=== PATIENT | male | born 1935 | race Caucasian/White ===

== ENCOUNTER 2016-12-19 12:22 | Emergency (ER) | payer MEDICARE, BC ==
--- NOTE | 2016-12-19 12:40 | Emergency Department Record ---
History of Present Illness - General Chief complaint: Extremity Problem Stated complaint: SWOLLEN THUMB Time Seen by Provider: 12/19/16 12:40 Source: Patient Mode of Arrival: Ambulatory Limitations: No limitations - History of Present Illness Initial comments: The patient is here due to having pain and swelling to his L hand for 2 days. He denies any trauma but was cutting wood prior to the onset and thinks there may be a piece in there. He denies any direct trauma. MD Complaint: Extremity pain Onset/Timin -: Days(s) Location: Left, Hand Severity scale (1-10): 7 Quality: Aching, Sharp Consistency: Constant Improves with: Nothing Worsens with: Exertion, Palpation, Weight bearing Associated Symptoms: Denies other symptoms - Related Data Home Medications Medication Instructions Recorded Confirmed Last Taken Multivitamin [Multi-Vitamin Daily] 1 each PO DAILY 08/29/14 12/19/16 04/26/16 Gluc/Kevyn-MSM#1/C/Jason/Damian/Bor 1 tab PO DAILY 04/15/15 12/19/16 04/26/16 [Osteo Bi-Flex] Previous Rx's Medication Instructions Recorded Clindamycin HCl [Cleocin HCl] 300 mg PO QID #28 capsule 12/19/16 Allergies Allergy/AdvReac Type Severity Reaction Status Date / Time nitroglycerin Allergy Intermediate ALTERED Verified 04/26/16 15:07 [From Nitrostat] MENTAL STATUS Travel Screening - Travel/Exposure Within Last 30 Days Have you traveled within the last 30 days?: No Review of Systems Constitutional: Denies: Chills, Fever Eyes: Denies: Eye discharge ENT: Denies: Congestion Respiratory: Denies: Cough, Dyspnea Past Medical History - SOCIAL HISTORY Smoking Status: Never smoker Alcohol Use: None Drug Use: None - RESPIRATORY Hx Respiratory Disorders: Yes Hx Sleep Apnea: Yes Hx of CPAP: Yes - CARDIOVASCULAR Hx Cardio Disorders: Yes Hx Hypertension: Yes Hx Coronary Artery Disease: Yes (HYPERLIPIDEMIA) - NEURO Hx Neuro Disorders: No - GI Hx GI Disorders: Yes Hx of Polyps: Yes - Hx Genitourinary Disorders: Yes Hx Prostate Problems: Yes (cancer) Comment:: ERECTILE DYSFUNCTION - ENDOCRINE Hx Endocrine Disorders: No - MUSCULOSKELETAL Hx Musculoskeletal Disorders: Yes Hx Arthritis: Yes - PSYCH Hx Psych Problems: No - HEMATOLOGY/ONCOLOGY Hx Hematology/Oncology Disorders: Yes Hx Cancer: Yes Hx Chemotherapy: No Hx Radiation Therapy: No Family Medical History Any Significant Family History?: Yes Hx Heart Disease: Father Hx HTN: Father Physical Exam - General General Appearance: Alert, Oriented x3, Cooperative, No acute distress - Head Head exam: Atraumatic, Normocephalic, Normal inspection - Eye Eye exam: Normal appearance, PERRL - Extremities Extremities exam: Tenderness (There is tenderness, swelling and erythema to the L hand dorsally over the mid 1st MC bone. There is pain with L thumb flexion.), Other (There is a very small opening in the middle of the erythematous area that is draining a very small amount of purulent material.). negative: Normal inspection (There is erythema and slight swelling to the dorsal L hand over the 1st MT bone. There is red streaking up the L arm from the wound to just past the elbow.), Full ROM, Pedal edema Course Vital Signs 12/19/16 12:30 Temperature 98.2 F Pulse Rate 64 Respiratory 18 Rate Blood Pressure 146/77 Pulse Ox 93 L - Reevaluation(s) Reevaluation #1: The patient is doing better. I did explain to him the xrays appear normal with no FB. He states the hand feels better and is less red with less pain. I explained to him that since we are not sure if there is any FB in the hand we will treat him for an infection. If the infection does not clear we will need to refer him to a hand specialist. The patient does understand the plan. 12/19/16 13:41 Disposition Disposition: Discharge Clinical Impression: Infected hand Disposition: Home, Self-Care Condition: (1) Good Instructions: Cellulitis (ED) Additional Instructions: Take the Clindamycin as directed. Use warm compresses on the hand every 2 hours while awake for 20 minutes (or soaks). [facility]ck as planned for the 8:20 appointment. Prescriptions: Clindamycin HCl [Cleocin HCl] 300 mg PO QID #28 capsule Forms: Patient Portal Access Time of Disposition: 14:17
[2016-12-19] MEDS ORDERED: CLINDAMYCIN 600MG/50ML PREMIX 600 MG in DEXTROSE 1 BAG IV ONE (12:44)
[2016-12-19] MEDS ORDERED: CEFTRIAXONE SODIUM 1 GM in 0.9 % SODIUM CHLORIDE 100ML 100 ML IVPB ONE (13:54)
--- NOTE | 2016-12-21 13:39 | RADIOLOGY REPORT ---
EXAM: LEFT HAND HISTORY: PATIENT HAD A SPLINTER IN THE LEFT THUMB ON MONDAY. NOW COMPLAINING OF PAIN, REDNESS, SWELLING, AND WARMTH TO THE TOUCH AT THE FIRST METACARPAL REGION. TECHNIQUE: Three views of the left hand were obtained. Comparison: None. FINDINGS: There are diffuse arthritic changes throughout the hand and wrist. There are no acute osseous abnormalities. There is no radiopaque foreign body. There is soft tissue swelling of the thumb and surrounding the first metacarpal. There is no associated acute osseous abnormality. There is no visible soft tissue air. IMPRESSION: 1. SOFT TISSUE SWELLING SURROUNDING THE THUMB AND FIRST METACARPAL. 2. NO ACUTE OSSEOUS ABNORMALITY OR VISIBLE FOREIGN BODY. JOB [facility]BER: [id number] [facility]
== END 2016-12-19 14:44 | disposition home or self-care (01) ==
LOC: ER 12:22
DX: L08.9 Local infection of the skin and subcutaneous tissue, unspecified (principal)
CPT/HCPCS: 96365; 96366; 99283; 99284

== ENCOUNTER 2017-04-22 23:48 | Emergency (ER) | payer MEDICARE, BC ==
[2017-04-22] MEDS ORDERED: ONDANSETRON HCL IV 4 MG/2 ML VIAL IV ONE (23:59)
[2017-04-22] MEDS ORDERED: ACETAMINOPHEN 1,000 MG/100 ML BTL IVPB ONE (23:59)
[2017-04-22] MEDS ORDERED: 0.9 % SODIUM CHLORIDE 1000ML 1,000 ML IV ONE (23:59)
[2017-04-22] MEDS ORDERED: MORPHINE SULFATE 5 MG/ML PFS IVP ONE (23:59)
--- NOTE | 2017-04-23 00:08 | Emergency Department Record ---
History of Present Illness - General Chief Complaint: Abdominal Pain Stated Complaint: PAIN Time Seen by Provider: 04/22/17 23:53 Source: Patient, Family Mode of Arrival: Ambulatory Limitations: No limitations - History of Present Illness Initial Comments: 81 yo male presents with lower abdominal pain. He feels bloated and feels like he needs to have a bowel movement. No hematuria. He had a bowel movement yesterday that was normal. He mowed the yard today without pain on the riding mower and went to [facility] from 5p to 9p without pain. The pain started later once he got home. No vomiting. He reports he had a bladder biopsy on Monday. He did not have any significant immediate difficulties MD Complaint: Abdominal pain -: Hour(s) Location: Suprapubic, Other (Low abdomen) Migration to: No migration Severity: Severe Quality: Aching, Cramping, Sharp, Stabbing Consistency: Intermittent Improves With: Nothing Worsens With: Bowel movement (Unable to have a bowel movement) Associated Symptoms: Constipation (tonight) - Related Data Home Medications Medication Instructions Recorded Confirmed Last Taken Multivitamin [Multi-Vitamin Daily] 1 each PO DAILY 08/29/14 04/23/17 04/26/16 Glucosam/Kevyn-Msm1/C/Jason/Bosw 1 tab PO DAILY 04/15/15 04/23/17 04/26/16 [Osteo Bi-Flex] Previous Rx's Medication Instructions Recorded Polyethylene Glycol 3350 [Miralax] 1 packet PO DAILY #14 packet 04/23/17 Allergies Allergy/AdvReac Type Severity Reaction Status Date / Time nitroglycerin Allergy Intermediate ALTERED Verified 04/23/17 00:07 [From Nitrostat] MENTAL STATUS Review of Systems Constitutional: Denies: Chills, Fever, Malaise, Night sweats, Weakness Eyes: Denies: Eye discharge ENT: Denies: Congestion, Throat pain Respiratory: Denies: Cough, Dyspnea Cardiovascular: Denies: Chest pain, Syncope Endocrine: Denies: Fatigue Gastrointestinal: Reports: Abdominal pain, Constipation. Denies: Diarrhea, Hematemesis, Hematochezia, Melena, Nausea, Vomiting Genitourinary: Denies: Dysuria, Frequency, Hematuria Musculoskeletal: Denies: Arthralgia, Back pain, Myalgia, Neck pain Neurological: Denies: Confusion, Headache Psychiatric: Denies: Anxiety Hematological/Lymphatic: Denies: Blood Clots, Easy bleeding, Easy bruising, Swollen glands Past Medical History - SOCIAL HISTORY Smoking Status: Never smoker Drug Use: None - RESPIRATORY Hx Respiratory Disorders: Yes Hx Sleep Apnea: Yes Hx of CPAP: Yes - CARDIOVASCULAR Hx Cardio Disorders: Yes Hx Hypertension: Yes Hx Coronary Artery Disease: Yes (HYPERLIPIDEMIA) - NEURO Hx Neuro Disorders: No - GI Hx GI Disorders: Yes Hx of Polyps: Yes - Hx Genitourinary Disorders: Yes Hx Prostate Problems: Yes (cancer) Comment:: ERECTILE DYSFUNCTION - ENDOCRINE Hx Endocrine Disorders: No - MUSCULOSKELETAL Hx Musculoskeletal Disorders: Yes Hx Arthritis: Yes - PSYCH Hx Psych Problems: No - HEMATOLOGY/ONCOLOGY Hx Hematology/Oncology Disorders: Yes Hx Cancer: Yes Hx Chemotherapy: No Hx Radiation Therapy: No Family Medical History Hx Heart Disease: Father Hx HTN: Father Physical Exam - General General Appearance: Alert, Oriented x3, Cooperative, No acute distress Limitations: No limitations - Head Head exam: Normal inspection - Eye Eye exam: Normal appearance. negative: Conjunctival injection, Periorbital swelling - ENT ENT exam: Normal exam, Mucous membranes moist Ear exam: Normal external inspection Nasal Exam: Normal inspection Mouth exam: Normal external inspection - Neck Neck exam: Normal inspection, Full ROM. negative: Tenderness - Respiratory Respiratory exam: Normal lung sounds bilaterally. negative: Respiratory distress - Cardiovascular Cardiovascular Exam: Regular rate, Normal rhythm, Normal heart sounds - GI/Abdominal GI/Abdominal exam: Soft. negative: Distended, Hernia, Organomegaly, Rigid, Tenderness - Rectal Rectal exam: Fecal impaction, Heme (-) stool. negative: Bloody stool - exam: Normal inspection. negative: Scrotal swelling, Testicular tenderness - Extremities Extremities exam: Normal inspection, Full ROM, Normal capillary refill. negative: Tenderness - Back Back exam: Reports: Normal inspection, Full ROM. Denies: Muscle spasm, Rash noted, Tenderness - Neurological Neurological exam: Alert, Normal gait, Oriented X3 - Psychiatric Psychiatric exam: Normal affect, Normal mood - Skin Skin exam: Dry, Intact, Normal color, Warm Course - Reevaluation(s) Reevaluation #1: The CBC, Lipase, CMP were reviewed. No acute changes. 04/23/17 00:50 Reevaluation #2: The pain returned. Instead of low abdomen it is now more RUQ. No nausea, vomiting or back pain. He has drank one bottle of contrast. 04/23/17 01:20 Reevaluation #3: The patient returned from CT. He is resting very comfortably. No pain. 04/23/17 02:46 Reevaluation #4: The [facility] report was reviewed: Moderate fecal stasis fo the sigmid and rectal vault, sigmoid diverticulosis without diverticulitis, small fat containing inguinal hernia, cardiomegally The results were discussed with the patient and daughter. I recommended a MOM enema after performing a rectal examination. There was abundant craig like stool in the rectum. He did take [place] the first several days after surgery. 04/23/17 02:57 Reevaluation #5: The patient has a significantly large bowel movement and feels very comfortable much improved DC home with home care instructions and follow We discussed reasons to return as well. 04/23/17 03:54 Medical Decision Making - Lab Data Result diagrams: 04/23/17 00:08 04/23/17 00:08 Disposition Disposition: Discharge Clinical Impression: Abdominal pain, Constipation Disposition: Home, Self-Care Condition: (1) Good Instructions: Constipation (ED), Abdominal Pain (ED) Prescriptions: Polyethylene Glycol 3350 [Miralax] 1 packet PO DAILY #14 packet Forms: Patient Portal Access Time of Disposition: 03:55
[2017-04-23 00:33] LABS: ALBUMIN 4.5 gm/dL (3.5-5.0); ALKALINE PHOSPHATASE 85 U/L (38-126); ALT/SGPT 29 U/L (21-72); ANION GAP 8.2 (7-16); AST/SGOT 26 U/L (17-59); BASO % 0.5 % (0-6); BILIRUBIN,TOTAL 0.75 mg/dL (0.2-1.3); BLOOD UREA NITROGEN 23 mg/dL (9-20); CARBON DIOXIDE 26.8 mmol/L (22-30); CREATININE 1.2 mg/dL (0.66-1.25); EOS % 3.6 % (0-6); EST GLOMERULAR FILTRATION RATE > 60 ml/min; GLUCOSE,RANDOM 84 mg/dL (70-110); HEMOGLOBIN 16.1 gm/dl (14.0-18.0); LIPASE 76 U/L (23-300); LYMPH % 20.6 % (16-45); MEAN CELL VOLUME 91.7 fl (81-97); MEAN CORPUSCULAR HEMOGLOBIN 29.5 pg (27-33); MEAN CORPUSCULAR HGB CONC 32.2 g/dl (32-36); MEAN PLATELET VOLUME 9.9 fl (7.4-10.4); MONO % 13.3 % (0-9); PLATELET COUNT 215 K/uL (130-400); RED BLOOD COUNT 5.45 M/uL (4.40-5.70); RED CELL DISTRIBUTION WIDTH 14.1 % (11.5-14.5); TOTAL PROTEIN 8.2 gm/dL (6.3-8.2); WHITE BLOOD COUNT W/O DIFF 8.6 K/uL (4.2-12.2)
[2017-04-23] MEDS ORDERED: MORPHINE SULFATE 5 MG/ML PFS IVP ONE (01:04)
--- NOTE | 2017-04-25 04:14 | CT SCAN REPORT ---
DATE: 04/23/2017 at 2:25 a.m. EXAM: CT SCAN OF THE ABDOMEN AND PELVIS WITH CONTRAST. HISTORY: Blood in stool. Severe abdominal pain. Difficulty going to the bathroom. Bladder biopsy on Monday. TECHNIQUE: Standard CT imaging of the abdomen and pelvis was performed with oral and intravenous contrast. A total of 100 mL of Omnipaque 300 was administered. Additional coronal and sagittal reformatted images were also performed. COMPARISON: February 24, 2016. FINDINGS: There is moderate atelectasis or scarring at the lung bases. The heart is enlarged. Coronary artery calcifications are present. The stomach and epigastrium appear normal. The liver parenchyma appears normal. The gallbladder is surgically absent. There is no biliary ductal dilatation. The pancreas appears normal. Small duodenal diverticula are present adjacent to the pancreatic head. The spleen and adrenal glands are normal. The kidneys and ureters are unremarkable. There are moderate atherosclerotic calcifications within the aorta. There is no lymphadenopathy. There are scattered diverticula within the descending and sigmoid colon regions with no evidence for acute diverticulitis. There is moderate stool within the colon and greatest within the rectosigmoid region. There is minor wall thickening of the rectum suggesting possible fecal impaction. The small bowel loops and appendix are normal. There is no pneumoperitoneum or ascites. The urinary bladder appears normal. The previously noted small mass along the posterior wall is not seen on the current examination. The previously noted umbilical hernia has been repaired. Degenerative changes are present within the spine. No osteoblastic or osteolytic process is identified. IMPRESSION: 1. MODERATE STOOL/FECAL STASIS AT THE LEVEL OF THE RECTOSIGMOID COLON SUGGESTING FECAL IMPACTION. 2. COLONIC DIVERTICULOSIS WITH NO EVIDENCE FOR ACUTE DIVERTICULITIS. 3. ADDITIONAL STABLE CHRONIC FINDINGS ABOVE. JOB NUMBER: [id number] [facility]
== END 2017-04-23 04:05 | disposition home or self-care (01) ==
LOC: ER 23:48
DX: K59.00 Constipation, unspecified (principal); R10.11 Right upper quadrant pain
CPT/HCPCS: 99284 ×2; 96376; 96365; 96375; 83690; 85025; 80076; 80048; 74177; Q9967; J2405; J2270; J7030

== ENCOUNTER 2017-11-22 09:47 | Inpatient (IN) | payer MEDICARE, BC ==
[2017-11-22] MEDS ORDERED: IPRATROPIUM/ALBUTEROL (0.5MG/3MG) NEB INH ONE ×2 (09:56→13:36)
[2017-11-22] MEDS ORDERED: METHYLPREDNISOLONE PF 125MG/VIAL IVP ONE (10:01)
[2017-11-22] MEDS ORDERED: ASPIRIN 81 MG CHEWABLE TABLET PO ONE (10:12)
[2017-11-22 10:49] LABS: BASO % 0.2 % (0-6); EOS % 2.7 % (0-6); GRAN % 73.6 % (47-80); HEMATOCRIT 47.4 % (42.0-52.0); HEMOGLOBIN 15.4 gm/dl (14.0-18.0); LYMPH % 11.9 % (16-45); MEAN CELL VOLUME 94.4 fl (81-97); MEAN CORPUSCULAR HEMOGLOBIN 30.7 pg (27-33); MEAN CORPUSCULAR HGB CONC 32.5 g/dl (32-36); MONO % 11.6 % (0-9); PLATELET COUNT 205 K/uL (130-400); RED BLOOD COUNT 5.02 M/uL (4.40-5.70); RED CELL DISTRIBUTION WIDTH 14.3 % (11.5-14.5); WHITE BLOOD COUNT W/O DIFF 10.4 K/uL (4.2-12.2)
[2017-11-22] MEDS ORDERED: ALBUTEROL SULFATE (0.083%) 2.5 MG/3 ML NEB INH ONE (10:56)
[2017-11-22 10:59] LABS: BLOOD UREA NITROGEN 16 mg/dL (8-23); CREATININE 1.1 mg/dL (0.7-1.2); EST GLOMERULAR FILTRATION RATE > 60 mL/min
[2017-11-22 11:02] LABS: GLUCOSE,RANDOM 114 mg/dL (74-109)
[2017-11-22 11:03] LABS: INR 0.94; PARTIAL THROMBOPLASTIN TIME 28.2 SECONDS (24.5-39.1); PROTHROMBIN TIME (PATIENT) 10.2 SECONDS (9.5-12.1)
[2017-11-22 11:07] LABS: CKMB 2.8 ng/mL (<6.73)
--- NOTE | 2017-11-22 11:32 | Emergency Department Record ---
History of Present Illness - General Chief Complaint: Shortness of breath Stated Complaint: VIKTORIA Time Seen by Provider: 11/22/17 10:11 Mode of Arrival: Ambulatory - History of Present Illness Initial Comments: 2 days ago and cough and congestion and wheezing and no history of CHF. PMH hypertension and hyperchol Onset/Timin -: Days(s) Improves With: Rest Worsens With: Movement Associated Symptoms: Cough Treatments Prior to Arrival: None - Related Data Home Oxygen Therapy: No Allergies Allergy/AdvReac Type Severity Reaction Status Date / Time nitroglycerin Allergy Intermediate ALTERED Verified 11/22/17 09:56 [From Nitrostat] MENTAL STATUS Travel Screening - Travel/Exposure Within Last 30 Days Have you traveled within the last 30 days?: No Review of Systems Reviewed: No additional complaints except as noted below Constitutional: Reports: As per HPI. Denies: Chills, Fever, Malaise, Night sweats, Weakness, Weight change Eyes: Reports: As per HPI. Denies: Eye discharge, Eye pain, Photophobia, Vision change ENT: Reports: As per HPI, Congestion. Denies: Dental pain, Ear pain, Epistaxis , Hearing loss, Throat pain Respiratory: Reports: As per HPI, Cough, Wheezes. Denies: Dyspnea, Hemoptysis, Stridor Cardiovascular: Reports: As per HPI. Denies: Arrhythmia, Chest pain, Dyspnea on exertion, Edema, Murmurs, Orthopnea, Palpitations, Paroxysmal nocturnal dyspnea, Rheumatic Fever, Syncope Endocrine: Reports: As per HPI. Denies: Fatigue, Heat or cold intolerance, Polydipsia, Polyuria Gastrointestinal: Reports: As per HPI. Denies: Abdominal pain, Constipation, Diarrhea, Hematemesis, Hematochezia, Melena, Nausea, Vomiting Genitourinary: Reports: As per HPI. Denies: Dysuria, Frequency, Hematuria, Incontinence, Retention, Testicular pain, Testicular mass, Urgency Musculoskeletal: Reports: As per HPI. Denies: Arthralgia, Back pain, Gout, Joint swelling, Myalgia, Neck pain Skin: Reports: As per HPI. Denies: Bruising, Change in color, Change in hair/ nails, Lesions, Pruritus, Rash Neurological: Reports: As per HPI. Denies: Abnormal gait, Confusion, Headache, Numbness, Paresthesias, Seizure, Tingling, Tremors, Vertigo, Weakness Psychiatric: Reports: As per HPI. Denies: Anxiety, Auditory hallucinations, Depression, Homicidal thoughts, Suicidal thoughts, Visual hallucinations Hematological/Lymphatic: Reports: As per HPI. Denies: Anemia, Blood Clots, Easy bleeding, Easy bruising, Swollen glands Past Medical History - SOCIAL HISTORY Smoking Status: Never smoker Alcohol Use: None Drug Use: None - RESPIRATORY Hx Respiratory Disorders: Yes Hx Sleep Apnea: Yes Hx of CPAP: Yes - CARDIOVASCULAR Hx Cardio Disorders: Yes Hx Hypertension: Yes Hx Coronary Artery Disease: Yes (HYPERLIPIDEMIA) - NEURO Hx Neuro Disorders: No - GI Hx GI Disorders: Yes Hx of Polyps: Yes - Hx Genitourinary Disorders: Yes Hx Prostate Problems: Yes (cancer) Comment:: ERECTILE DYSFUNCTION - ENDOCRINE Hx Endocrine Disorders: No - MUSCULOSKELETAL Hx Musculoskeletal Disorders: Yes Hx Arthritis: Yes - PSYCH Hx Psych Problems: No - HEMATOLOGY/ONCOLOGY Hx Hematology/Oncology Disorders: Yes Hx Cancer: Yes Hx Chemotherapy: No Hx Radiation Therapy: No Family Medical History Any Significant Family History?: Yes Hx Heart Disease: Father Hx HTN: Father Physical Exam - General General Appearance: Alert, Oriented x3, Cooperative, Moderate distress - Head Head exam: Normal inspection - Eye Eye exam: Normal appearance, PERRL Pupils: Normal accommodation - ENT ENT exam: Normal exam, Mucous membranes moist, Normal external ear exam, Normal orophraynx, TM's normal bilaterally Ear exam: Normal external inspection. negative: External canal tenderness Nasal Exam: Normal inspection. negative: Discharge, Sinus tenderness Mouth exam: Normal external inspection, Tongue normal Teeth exam: Normal inspection. negative: Dental caries Throat exam: Normal inspection. negative: Tonsillar erythema, Tonsillar exudate - Neck Neck exam: Normal inspection, Full ROM. negative: Tenderness - Respiratory Respiratory exam: Normal lung sounds bilaterally. negative: Respiratory distress - Cardiovascular Cardiovascular Exam: Regular rate, Normal rhythm, Normal heart sounds - GI/Abdominal GI/Abdominal exam: Soft, Normal bowel sounds. negative: Tenderness - Rectal Rectal exam: Deferred - exam: Deferred - Extremities Extremities exam: Normal inspection, Full ROM, Normal capillary refill. negative: Tenderness - Back Back exam: Reports: Normal inspection, Full ROM. 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 ] Respiratory 20 16 18 Rate Blood Pressure 151/88 Blood Pressure 140/78 [Right Arm] Pulse Ox 94 L 94 L 96 11/22/17 10:58 Temperature Pulse Rate 68 Pulse Rate [ [employer] Supervisor ] Respiratory 20 Rate Blood Pressure Blood Pressure [Right Arm] Pulse Ox 93 L - Reevaluation(s) Reevaluation #1: 11/22/17 11:48 discussed case with Katie Medical Decision Making - Data Complexity MDM Data: Labs Ordered and/or Reviewed, X-Ray Ordered and/or Reviewed (chest xray negative), EKG Ordered and/or Reviewed (NSR, No acute changes) - Lab Data Result diagrams: 11/22/17 10:42 11/22/17 10:42 Lab Results 11/22/17 11/22/17 11/22/17 Range/Units 10:42 10:42 10:42 WBC 10.4 (4.2-12.2) K/uL RBC 5.02 (4.40-5.70) M/uL Hgb 15.4 (14.0-18.0) gm/dl Hct 47.4 (42.0-52.0) % MCV 94.4 (81-97) fl MCH 30.7 (27-33) pg MCHC 32.5 (32-36) g/dl RDW 14.3 (11.5-14.5) % Plt Count 205 (130-400) K/uL MPV 10.0 (7.4-10.4) fl Gran % 73.6 (47-80) % Lymphocytes % 11.9 L (16-45) % Monocytes % 11.6 H (0-9) % Eosinophils % 2.7 (0-6) % Basophils % 0.2 (0-6) % PT 10.2 (9.5-12.1) SECONDS INR 0.94 APTT 28.20 (24.5-39.1) SECONDS Sodium 138 (136-145) mmol/L Potassium 4.0 (3.4-4.5) mmol/L Chloride 99 (98-107) mmol/L Carbon Dioxide 27.0 (22-29) mmol/L Anion Gap 12.0 (7-16) BUN 16 (8-23) mg/dL Creatinine 1.1 (0.7-1.2) mg/dL Estimated GFR > 60 mL/min Random Glucose 114 H (74-109) mg/dL Calcium 9.6 (8.8-10.2) mg/dL CK-MB (CK-2) 2.8 (<6.73) ng/mL Troponin T < 0.010 (0-0.010) ng/mL Disposition Clinical Impression: Bronchitis COPD (chronic obstructive pulmonary disease) Qualifiers: COPD type: unspecified COPD Qualified Code(s): J44.9 - Chronic obstructive pulmonary disease, unspecified Decision to Admit: Admit from ER Condition: (2) Stable Forms: Patient Portal Access Quality - Quality Measures Quality Measures: N/A - Blood Pressure Screening Does Patient Have Any of the Following: No Blood Pressure Classification: Pre-Hypertensive BP Reading Systolic Measurement: 151 Diastolic Measurement: 88 Screening for High Blood Pressure: < Pre-Hypertensive BP, F/U Documented > [ G8950] Pre-Hypertensive Follow-up Interventions: Referral to alternative/primary care provider.
[2017-11-22] MEDS ORDERED: AZITHROMYCIN 500 MG TABLET PO ONE (11:34)
[2017-11-22] MEDS ORDERED: CEFTRIAXONE SODIUM 1 GM in 0.9 % SODIUM CHLORIDE 100ML 100 ML IVPB ONE (11:34)
[2017-11-22 11:40] LABS: STREP A SCREEN NEGATIVE (NEGATIVE)
[2017-11-22 11:48] LABS: INFLUENZA A NEGATIVE (NEGATIVE); INFLUENZA B NEGATIVE (NEGATIVE)
[2017-11-22] MEDS ORDERED: ALBUTEROL SULFATE (0.083%) 2.5 MG/3 ML NEB INH PRN (16:33)
[2017-11-22] MEDS ORDERED: FLU VAC QS 2017-18 (INPT, 6MO+) 60MCG/0.5ML IM ONE (16:54)
[2017-11-22] MEDS: METHYLPREDNISOLONE PF 125MG/VIAL IVP SCH ×2 (17:12→22:12)
[2017-11-22] MEDS: IPRATROPIUM/ALBUTEROL (0.5MG/3MG) NEB INH SCH ×3 (18:09→22:31)
[2017-11-22] MEDS: CEFTRIAXONE SODIUM 1 GM in 0.9 % SODIUM CHLORIDE 100ML 100 ML IVPB SCH (22:12)
[2017-11-22] MEDS: SIMVASTATIN 20 MG TABLET PO SCH (22:12)
[2017-11-22] MEDS: PRAMIPEXOLE DI-HCL 0.25 MG TABLET PO SCH (22:12)
[2017-11-23] MEDS: METHYLPREDNISOLONE PF 125MG/VIAL IVP SCH ×3 (05:17→21:34)
[2017-11-23] MEDS: IPRATROPIUM/ALBUTEROL (0.5MG/3MG) NEB INH SCH ×5 (05:36→22:41)
--- NOTE | 2017-11-23 07:14 | RADIOLOGY REPORT ---
EXAM: CHEST, TWO VIEWS HISTORY: COUGH FOR ONE DAY. CHEST PAIN YESTERDAY. TECHNIQUE: Upright PA and lateral views of the chest were obtained. Comparison: Two view chest radiographic examination dated 02/24/16. FINDINGS: The heart is not grossly enlarged. No pulmonary venous hypertension is seen. The aortic knob is atherosclerotic. No lung consolidation, costophrenic angle blunting or pneumothorax is seen. Mild reticular opacity prominence is noted in the lower lungs, not significantly changed in the interval likely relating to chronic interstitial change. There are degenerative changes scattered within the visualized spine. IMPRESSION: 1. NO DEFINITE EVIDENCE OF ACUTE INTRATHORACIC PROCESS. 2. MILD RETICULAR OPACITY PROMINENCE SUGGESTED IN THE LOWER LUNGS, NOT GROSSLY CHANGED IN THE INTERVAL LIKELY RELATING TO CHRONIC INTERSTITIAL CHANGE. JOB NUMBER: [id number] [facility]
[2017-11-23] MEDS: CEFTRIAXONE SODIUM 1 GM in 0.9 % SODIUM CHLORIDE 100ML 100 ML IVPB SCH ×2 (10:13→21:35)
[2017-11-23] MEDS: MULTIVITAMINS/MINERALS TABLET PO SCH (10:13)
[2017-11-23] MEDS: AZITHROMYCIN 500 MG TABLET PO SCH (10:13)
[2017-11-23] MEDS: ENOXAPARIN 40 MG/0.4 ML SYR SC SCH (10:13)
[2017-11-23] MEDS: LISINOPRIL 20 MG TABLET PO SCH (10:13)
[2017-11-23] MEDS: PRAMIPEXOLE DI-HCL 0.25 MG TABLET PO SCH (21:33)
[2017-11-23] MEDS: SIMVASTATIN 20 MG TABLET PO SCH (21:34)
[2017-11-24] MEDS: IPRATROPIUM/ALBUTEROL (0.5MG/3MG) NEB INH SCH ×2 (05:55→10:07)
[2017-11-24] MEDS: METHYLPREDNISOLONE PF 125MG/VIAL IVP SCH (05:58)
--- NOTE | 2017-11-24 10:31 | History and Physical Report ---
ADMISSION DATE: 11/22/2017 CHIEF COMPLAINT: Wheezing, dyspnea, cough. HISTORY OF PRESENT ILLNESS: This 82-year-old male presented to the emergency department with a 2-day history of cough, wheezing, and shortness of breath. He went to the [facility] who brought him over to the emergency department, evaluated by myself, and he was in severe distress with his respiratory wheezing. He was given multiple breathing treatments, IV Solu-Medrol, and started on IV antibiotics. He was admitted to the hospital for IV antibiotics, IV Solu-Medrol, breathing treatments, and further evaluation with a diagnosis of acute bronchitis and COPD. PAST MEDICAL HISTORY: He has sleep apnea and uses CPAP. He has hypertension, hyperlipidemia, GERD, history of colon polyps, prostate cancer, erectile dysfunction, osteoarthritis. He has had chemotherapy for his prostate cancer. PAST SURGICAL HISTORY: Gallbladder removal, right knee surgery, hernia surgery, bladder surgery, bladder biopsy, prostate removed because of prostate cancer. MEDICATIONS: 1. Simvastatin 20 mg daily. 2. Mirapex 1 at bedtime. 3. Multivitamin 1 a day. 4. Osteo Bi-Flex 1 a day. 5. Flonase 1 spray each nostril daily. ALLERGIES: Nitroglycerin. FAMILY/PSYCHOSOCIAL HISTORY: Father had hypertension and heart disease. Never smoked. No alcohol or drug use. REVIEW OF SYSTEMS: HEENT: He has had congestion, cough, and difficulty breathing for the last 2-3 days. No visual problems, hearing problems, or facial pain. Cardiovascular: No chest pain or palpitations but he does have a cough and congestion. Respiratory: He is coughing up sputum, short of breath, wheezing, and he has never smoked before. Gastrointestinal: No nausea, vomiting, diarrhea, black stools, or bloody stools. Genitourinary: No dysuria, hematuria, frequency, or burning on urination. Musculoskeletal: No joint or bone abnormalities. Neurological: No CVA, paralysis, or paresthesias. Endocrine: No diabetes or thyroid disease. Integument: No rash, ulcers, change in moles, or yellow skin. PHYSICAL EXAMINATION: VITALS: Height 5 feet 8 inches, weight 228 pounds. Temperature 98.5, pulse 120, blood pressure 121/58, respiratory rate 18, pulse ox 95% on room air. HEENT: Pupils are equal, round, and reactive to light and accommodation. Extraocular muscles are intact. Throat is clear. Nose is clear. Tympanic membranes are cannon. NECK: Supple. No jugular venous distention. No hepatojugular reflux. No carotid bruits. Thyroid is smooth. CARDIOVASCULAR: Regular rate and rhythm without murmurs, clicks, rubs, or gallops. RESPIRATORY: Wheezing bilaterally all lung faith. ABDOMEN: Soft, nontender. No hepatosplenomegaly, no masses, no tenderness. Bowel sounds are active. He is obese. EXTREMITIES: No pitting edema. No cyanosis, no clubbing. Full range of motion. Peripheral pulses are good. BREASTS: Normal male breasts. RECTAL: Exam deferred. GENITALIA: Deferred. NEUROLOGIC: Cranial nerves II-XII intact. No gross defects. Sensation normal, strength normal. Deep tendon reflexes equal bilaterally with Babinski negative. MENTAL STATUS: Alert and oriented x3. IMPRESSION: 1. Acute bronchitis. 2. Chronic obstructive pulmonary disease. 3. Wheezing. 4. Obstructive sleep apnea. 5. Hypoxia. PLAN: Oxygen, breathing treatments, IV antibiotics with Rocephin and azithromycin, IV Solu-Medrol. INPATIENT CERTIFICATION: Admit to inpatient care. Based on my medical assessment, after consideration of patient's risk factors, age, comorbidities, and patient's presenting symptoms and acuity, I expect that this patient will remain in the hospital greater than or equal to 2 midnights and that the services needed warrant inpatient care because of breathing difficulties, wheezing, dyspnea, hypoxia. Estimated length of stay is 3 days. The patient may reasonably be expected to be discharged or transferred to a hospital within 96 hours after admission to [facility]. I certify that my determination is in accordance with my understanding of Medicare requirements for reasonable and necessary inpatient services. [facility]
[2017-11-24] MEDS: MULTIVITAMINS/MINERALS TABLET PO SCH (11:36)
[2017-11-24] MEDS: ENOXAPARIN 40 MG/0.4 ML SYR SC SCH (11:36)
[2017-11-24] MEDS: CEFTRIAXONE SODIUM 1 GM in 0.9 % SODIUM CHLORIDE 100ML 100 ML IVPB SCH (11:37)
[2017-11-24] MEDS: AZITHROMYCIN 500 MG TABLET PO SCH (11:38)
[2017-11-24] MEDS: LISINOPRIL 20 MG TABLET PO SCH (11:38)
[2017-11-24] MEDS ORDERED: PREDNISONE 20 MG TAB PO ONE (14:07)
--- NOTE | 2017-11-24 14:07 | Discharge Note ---
VTE H&P Assessment - Risk for VTE Risk for VTE: Yes Risk Level: Moderate Risk Assessment Date: 11/22/17 Risk Assessment Time: 12:00 VTE Orders Placed or Will Be Placed: Yes Discharge Medications - Discharge Medications Prescriptions: Albuterol Sulfate [Ventolin Hfa] 2 puff INH RESP.Q4H.WA #1 inhaler Azithromycin [Zithromax] 500 mg PO DAILY #7 tab Cephalexin [Keflex] 500 mg PO QID #40 cap Prednisone [Prednisone 10Mg] 10 mg PO ASDIR #30 tab Home Medications: Ambulatory Orders Multivitamin [Multi-Vitamin Daily] 1 each PO DAILY 08/29/14 [Last Taken 04/26/16 ] Glucosam/Kevyn-Msm1/C/Jason/Bosw [Osteo Bi-Flex] 1 tab PO DAILY 04/15/15 [Last Taken 04/26/16] Albuterol Sulfate [Ventolin Hfa] 2 puff INH RESP.Q4H.WA #1 inhaler 11/24/17 [ Last Taken Unknown] Azithromycin [Zithromax] 500 mg PO DAILY #7 tab 11/24/17 [Last Taken Unknown] Cephalexin [Keflex] 500 mg PO QID #40 cap 11/24/17 [Last Taken Unknown] Prednisone [Prednisone 10Mg] 10 mg PO ASDIR #30 tab 11/24/17 [Last Taken Unknown ] Discharge Note - Date Date of Discharge Note: 11/24/17 Condition: (2) Stable Additional Instructions: follow up with Katie You in 5-10 days prednisone taper 40 mg(four 10 mg pills) daily times 3 days, Than 30 mg per day for 3 days than 20 mg per day for 3 days than 10 mg per day Forms: Patient Portal Access
--- NOTE | 2017-11-24 15:30 | Discharge Summary ---
DATE: 11/24/2017 at 2:18 p.m. DISCHARGE DIAGNOSES: 1. Acute bronchitis. 2. Chronic obstructive pulmonary disease, infectious induced. 3. Obstructive sleep apnea. 4. Hypoxia, resolved. ATTENDING PHYSICIAN: Lucas Oliveros DO REASON FOR HOSPITALIZATION: Wheezing, dyspnea, and cough. This 82-year-old presented to the emergency department with a 2-day history of cough, wheezing, shortness of breath. Went to [facility], brought him to the emergency department, evaluated by myself. He was in severe distress with respiratory wheezing. He had multiple breathing treatments, IV Solu-Medrol, started on IV antibiotics. Admitted to the hospital for IV antibiotics, IV Solu-Medrol, breathing treatments, and further evaluation with a diagnosis of acute bronchitis and COPD. SIGNIFICANT FINDINGS: Chest x-ray, no definitive evidence of acute intrathoracic process, mild reticular opacity, prominence suggested in the lower lungs not grossly changed in the interval likely relating to chronic interstitial changes. EKG with normal sinus rhythm, no acute changes. WBC 10,400, hemoglobin 15.4. Influenza A and B and strep screen were negative. Cardiac enzymes were negative. BUN is 60, creatinine is 1.1. THERAPY PROVIDED: The patient was given IV Solu-Medrol, DuoNeb treatments every 4 hours while awake, and if necessary albuterol p.r.n. every hour. He was also given Solu-Medrol 125 in the ER, then 60 mg q.8 h., switched over to oral prednisone, going to go home on oral prednisone at 40 mg a day for 3 days, 30 mg a day for 3 days, 20 mg a day for 3 days, and 10 mg a day for 3 days, 10-mg pills will be dispensed. HOSPITAL COURSE: The patient gradually improved and is doing much better. CONDITION ON DISCHARGE: Much improved. DISCHARGE INSTRUCTIONS: Follow up with Katie Escobedo or Dr. Sweet in 5-10 days. Activity as tolerated. Diet as tolerated. DISCHARGE MEDICATIONS: 1. Keflex 500 mg q.i.d. for 10 days. 2. Azithromycin 500 mg daily for 7 days. 3. Ventolin inhaler 2 puffs q.4 h. while awake. 4. Simvastatin 20 mg daily. 5. Mirapex 1 mg at bedtime. 6. Multivitamin 1 a day. 7. Osteo Bi-Flex 1 a day. 8. Flonase 1 spray each nostril daily. 9. Prednisone is going to be 10 mg pills, 4 pills a day for 3 days, then 3 pills a day for 3 days, 2 pills a day for 3 days, then 1 pill a day for 3 days. RESPIRATORY: Constantin will be teaching him how to use the inhaler. MTDD
[2017-11-24] MEDS ORDERED: PREDNISONE 20 MG TAB PO SCH (17:30)
[2017-11-24] MEDS ORDERED: ALBUTEROL HFA 8 GM INHALER INH SCH (18:00)
== END 2017-11-24 15:50 | disposition home or self-care (01) | DRG 192 ==
LOC: ER 09:47 → MEDSURG 16:18
PROVIDERS: ADMIT Emergency Medicine; ATTEND Emergency Medicine
DX: J44.1 Chronic obstructive pulmonary disease with (acute) exacerbation (principal); I10 Essential (primary) hypertension; E78.5 Hyperlipidemia, unspecified; Z85.46 Personal history of malignant neoplasm of prostate; R09.02 Hypoxemia; G47.30 Sleep apnea, unspecified; G47.33 Obstructive sleep apnea (adult) (pediatric)
CPT/HCPCS: 71046; 80048; 82553; 84484; 85025; 85610; 85730; 87400; 87880; 90686; 93005; 93010; 93041; 94640; 94761; 96374; 96375; 99223; 99239; 99285; J1650; J2930; J7512; J7613

== ENCOUNTER 2019-03-14 07:23 | Inpatient (IN) | payer MEDICARE, BC ==
--- NOTE | 2019-03-14 07:26 | Emergency Department Record ---
History of Present Illness - General Stated complaint: RIGHT LEG PAIN Time Seen by Provider: 03/14/19 07:25 Source: Patient, Family (son) - History of Present Illness Initial comments: the patient and his son states that he noticed his left leg was swollen and red on 03-12-19. His son reports that he has been limping, and that his legs are more swollen than his usual. He denies fevers, chills chest pain , difficulty breathing, or shortness of breath. He denies CT, CVA, PE, DVT in the past. He has had bladder cancer and prostate cancer which he states are "cured." MD Complaint: Extremity pain, Extremity swelling - Related Data Allergies Allergy/AdvReac Type Severity Reaction Status Date / Time nitroglycerin Allergy Intermediate ALTERED Verified 03/14/19 07:40 [From Nitrostat] MENTAL STATUS Review of Systems Reviewed: No additional complaints except as noted below Constitutional: Reports: As per HPI. Denies: Chills, Fever, Malaise, Night sweats, Weakness, Weight change Eyes: Reports: As per HPI. Denies: Eye discharge, Eye pain, Photophobia, Vision change ENT: Reports: As per HPI. Denies: Congestion, Dental pain, Ear pain, Epistaxis , Hearing loss, Throat pain Respiratory: Reports: As per HPI. Denies: Cough, Dyspnea, Hemoptysis, Stridor, Wheezes Cardiovascular: Reports: As per HPI. Denies: Arrhythmia, Chest pain, Dyspnea on exertion, Edema, Murmurs, Orthopnea, Palpitations, Paroxysmal nocturnal dyspnea, Rheumatic Fever, Syncope Endocrine: Reports: As per HPI. Denies: Fatigue, Heat or cold intolerance, Polydipsia, Polyuria Gastrointestinal: Reports: As per HPI. Denies: Abdominal pain, Constipation, Diarrhea, Hematemesis, Hematochezia, Melena, Nausea, Vomiting Genitourinary: Reports: As per HPI. Denies: Dysuria, Frequency, Hematuria, Incontinence, Retention, Testicular pain, Testicular mass, Urgency Musculoskeletal: Reports: As per HPI. Denies: Arthralgia, Back pain, Gout, Joint swelling, Myalgia, Neck pain Skin: Reports: As per HPI. Denies: Bruising, Change in color, Change in hair/ nails, Lesions, Pruritus, Rash Neurological: Reports: As per HPI. Denies: Abnormal gait, Confusion, Headache, Numbness, Paresthesias, Seizure, Tingling, Tremors, Vertigo, Weakness Psychiatric: Reports: As per HPI. Denies: Anxiety, Auditory hallucinations, Depression, Homicidal thoughts, Suicidal thoughts, Visual hallucinations Hematological/Lymphatic: Reports: As per HPI. Denies: Anemia, Blood Clots, Easy bleeding, Easy bruising, Swollen glands Past Medical History - SOCIAL HISTORY Smoking Status: Never smoker Drug Use: None - RESPIRATORY Hx Respiratory Disorders: Yes Hx Sleep Apnea: Yes Hx of CPAP: Yes - CARDIOVASCULAR Hx Cardio Disorders: Yes Hx Hypertension: Yes Hx Coronary Artery Disease: Yes (HYPERLIPIDEMIA) - NEURO Hx Neuro Disorders: No - GI Hx GI Disorders: Yes Hx of Polyps: Yes - Hx Genitourinary Disorders: Yes Hx Prostate Problems: Yes (cancer) Comment:: ERECTILE DYSFUNCTION - ENDOCRINE Hx Endocrine Disorders: No - MUSCULOSKELETAL Hx Musculoskeletal Disorders: Yes Hx Arthritis: Yes - PSYCH Hx Psych Problems: No - HEMATOLOGY/ONCOLOGY Hx Hematology/Oncology Disorders: Yes Hx Cancer: Yes Hx Chemotherapy: No Hx Radiation Therapy: No Family Medical History Hx Heart Disease: Father Hx HTN: Father Physical Exam - General General Appearance: Alert, Oriented x3, Cooperative, No acute distress - Head Head exam: Normal inspection - Eye Eye exam: Normal appearance, PERRL, EOMI. negative: Conjunctival injection, Nystagmus Pupils: Normal accommodation - ENT ENT exam: Normal exam, Mucous membranes moist, Normal external ear exam, Normal orophraynx, TM's normal bilaterally Ear exam: Normal external inspection, Other (hearing aides). negative: External canal tenderness Nasal Exam: Normal inspection. negative: Discharge, Sinus tenderness Mouth exam: Normal external inspection, Tongue normal Teeth exam: Normal inspection. negative: Dental caries Throat exam: Normal inspection. negative: Tonsillar erythema, Tonsillar exudate - Neck Neck exam: Normal inspection, Full ROM. negative: Lymphadenopathy, Meningismus , Tenderness - Respiratory Respiratory exam: Normal lung sounds bilaterally. negative: Respiratory distress - Cardiovascular Cardiovascular Exam: Regular rate, Normal rhythm, Normal heart sounds - GI/Abdominal GI/Abdominal exam: Soft, Normal bowel sounds. negative: Tenderness - Rectal Rectal exam: Deferred - exam: Deferred - Extremities Extremities exam: Normal inspection, Calf tenderness (right), Full ROM, Normal capillary refill, Pedal edema (bilateral), Tenderness (right vines with erythema , warmth and tenderness superimposed over chronic vascular changes. Distal pulse faint temperature normal.) - Back Back exam: Reports: Normal inspection, Full ROM. Denies: Muscle spasm, Rash noted, Tenderness - Neurological Neurological exam: Alert, Normal gait, Oriented X3, Reflexes normal - Psychiatric Psychiatric exam: Normal affect, Normal mood - Skin Skin exam: Dry, Intact, Normal color, Warm Course - Reevaluation(s) Reevaluation #1: Patient lives alone in his own home and agrees 03/14/19 10:44 Reevaluation #2: Discussed with Dr. Oliveros who accepts patient for admission. 03/14/19 11:00 Medical Decision Making - Management Options MDM Management: Additional Work-up Planned (e.g. ADM/Transfer/OP Study) - Data Complexity MDM Data: Labs Ordered and/or Reviewed, X-Ray Ordered and/or Reviewed (Venous dopplers negative lower extremities), EKG Ordered and/or Reviewed - Lab Data Result diagrams: 03/14/19 07:45 03/14/19 07:45 - EKG Data -: EKG Interpreted by Nm EKG: No Acute Changes, Normal EKG Disposition Disposition: Admit Clinical Impression: Cellulitis of right lower leg Disposition: Still a Patient at [facility] Decision to Admit: Admit from ER Decision to Admit Date: 03/14/19 Decision to Admit Time: 11:02 Accepting Physician: Dr. Oliveros Time Discussed w/Accepting Physician: 11:02 Condition: (1) Good Quality - Quality Measures Quality Measures: N/A, Blunt Head Trauma (>2yr) - Blunt Head Trauma - Adult Quality Measure: Measure #415: Utilization of CT for Minor Blunt Head Trauma ICD10 Codes Entered: Yes Was CT ordered: No Winfall Score: Please complete Winfall Coma Scale above Utilization of CT for Minor Blunt Head Trauma: Not Eligible For Measure Additional Inclusion Criteria: More than 24hrs (OR) GCS not 15 (OR) CT not ordered. Not Eligible Reason: CT Not Ordered - Blood Pressure Screening Does Patient Have Any of the Following: No Blood Pressure Classification: Pre-Hypertensive BP Reading Systolic Measurement: 132 Diastolic Measurement: 73 Screening for High Blood Pressure: Patient Exclusion, Hx of HTN [G9744]
[2019-03-14] MEDS ORDERED: SODIUM CHLORIDE 0.9% 500 ML IV ONE (07:36)
[2019-03-14 08:01] LABS: HEMATOCRIT 48.6 % (42.0-52.0); HEMOGLOBIN 15.3 gm/dl (14.0-18.0); MEAN CORPUSCULAR HEMOGLOBIN 29.6 pg (27-33); MEAN CORPUSCULAR HGB CONC 31.5 g/dl (32-36); MEAN PLATELET VOLUME 9.5 fl (7.4-10.4); PLATELET COUNT 199 K/uL (130-400); RED BLOOD COUNT 5.17 M/uL (4.40-5.70); RED CELL DISTRIBUTION WIDTH 14.9 % (11.5-14.5); WHITE BLOOD COUNT W/O DIFF 9.9 K/uL (4.2-12.2)
[2019-03-14 08:16] LABS: BILIRUBIN,TOTAL 0.8 mg/dL (0.2-1.0); CREATININE 1.4 mg/dL (0.7-1.2)
[2019-03-14] MEDS ORDERED: CEFAZOLIN 1G VIAL IVP ONE (08:16)
[2019-03-14 08:17] LABS: TOTAL PROTEIN 7.2 g/dL (6.6-8.7)
[2019-03-14 08:21] LABS: ALB/GLOB RATIO 1.2 (1.1-1.8); ALBUMIN 3.9 g/dL (4.0-5.0)
[2019-03-14 08:22] LABS: PROTHROMBIN TIME (PATIENT) 9.7 SECONDS (9.5-12.1)
[2019-03-14 08:23] LABS: NTpro B-NATRIURETIC PEPTIDE 91.88 pg/mL (<450)
[2019-03-14 08:26] LABS: LACTIC ACID 1.4 mmol/L (0.5-2.2)
[2019-03-14 09:13] LABS: URINE APPEARANCE SL CLOUDY; URINE BILIRUBIN NEGATIVE (NEGATIVE); URINE BLOOD MODERATE (NEGATIVE); URINE COLOR YELLOW; URINE GLUCOSE (UA) NEGATIVE (NEGATIVE); URINE KETONE TRACE (NEGATIVE); URINE LEUKOCYTE ESTERASE NEGATIVE (NEGATIVE); URINE NITRITE NEGATIVE (NEGATIVE); URINE UROBILINOGEN 0.2 E.U./dL (0.20 - 1.00)
[2019-03-14 09:33] LABS: URINE RBC 0 - 2 (NONE SEEN); URINE WBC NONE SEEN (0-2/hpf)
[2019-03-14 09:34] LABS: URINE BACTERIA NONE SEEN; URINE EPITHELIAL CELLS 0 - 2 (FEW)
[2019-03-14] MEDS ORDERED: ACETAMINOPHEN 500 MG TABLET PO PRN (13:44)
[2019-03-14] MEDS: VANCOMYCIN HCL 1,250 MG in 0.9 % SODIUM CHLORIDE 250ML 250 ML IVPB SCH (14:54)
[2019-03-14] MEDS ORDERED: PNEUM 23-VAL ADULT IM ONE (17:11)
[2019-03-14] MEDS: CEFAZOLIN 1 Gram 1 GM/50 ML BAG IVPB SCH (17:44)
[2019-03-14] MEDS: PRAMIPEXOLE DI HCL 1 MG PO SCH (21:05)
[2019-03-14] MEDS: PATIENT OWN MED: SIMVASTATIN 20 MG PO SCH (21:05)
[2019-03-14] MEDS ORDERED: TIOTROPIUM BROMIDE IH SCH (22:00)
[2019-03-15] MEDS: CEFAZOLIN 1 Gram 1 GM/50 ML BAG IVPB SCH ×3 (02:29→17:56)
--- NOTE | 2019-03-15 07:18 | US VENOUS DOPPLER REPORT ---
EXAM: BILATERAL LOWER EXTREMITY VENOUS DUPLEX ULTRASOUND HISTORY: LEG SWELLING. TECHNIQUE: Bilateral lower extremity venous Duplex ultrasound was obtained with evaluation of compression, color flow and augmentation. Comparison: None. FINDINGS: No evidence of thrombus involving the bilateral external iliac, common femoral, proximal/mid/distal femoral, popliteal, gastrocnemius, posterior tibial, peroneal, or anterior tibial veins. Nonspecific soft tissue edema noted in the calves. IMPRESSION: NO EVIDENCE OF DEEP VENOUS THROMBOSIS IN EITHER THE LEFT OR RIGHT LOWER EXTREMITIES. JOB NUMBER: [id number] [facility]
[2019-03-15] MEDS: VANCOMYCIN HCL 1,250 MG in 0.9 % SODIUM CHLORIDE 250ML 250 ML IVPB SCH (07:49)
[2019-03-15] MEDS: PATIENT OWN MED: SPIRIVA RESPIMAT INH SCH (08:40)
--- NOTE | 2019-03-15 08:48 | Inpatient Certification ---
Inpatient Certification Admit to inpatient care: Based on my medical assessment, after consideration of patient's risk factors (age, co-morbidities and patient presenting symptoms and acuity), I expect that this patient will remain in the hospital greater than or equal to two midnights and that the services needed warrant inpatient care because: on need for IV kefzol and IV vancomycin and vascular checks on his leg Patient Risk Factors: [] Estimated length of stay: [3 days] The patient may reasonably be expected to be discharged or transferred to a hospital within 96 hours after admission to [facility]. Services needed: [IV vancomycin and IV kefzol] Post hospital care (if known): [] I certify that my determination is in accordance with my understanding of Medicare requirements for reasonable and necessary inpatient services. 03/15/19 08:47
[2019-03-15] MEDS: ENOXAPARIN 30 MG/0.3 ML SYR SQ SCH (09:38)
[2019-03-15] MEDS: LYCOPEN PO SCH (09:38)
[2019-03-15] MEDS: [UNRECOGNIZED DRUG - OTHER] PO SCH (09:38)
[2019-03-15] MEDS: [UNRECOGNIZED DRUG - OTHER] PO SCH (09:38)
[2019-03-15] MEDS: LUTEIN PO SCH (09:38)
[2019-03-15] MEDS: MULTIVIT MIN PO SCH (09:38)
[2019-03-15] MEDS: PATIENT OWN MED: LISINOPRIL 20 MG PO SCH (09:39)
[2019-03-15] MEDS ORDERED: [UNRECOGNIZED DRUG - REMARK] NS SCH (10:00)
--- NOTE | 2019-03-15 10:10 | History and Physical Report ---
DATE OF ADMISSION: 03/14/2019 CHIEF COMPLAINT: Red, swollen, right lower leg that started 2 to 3 days ago. HISTORY OF PRESENT ILLNESS: This 83-year-old male presented to the emergency department, seen by Dr. Rojo, admitted to the hospital for cellulitis of the right lower leg. He states he has never had this happen before. MEDICAL HISTORY: COPD, sleep apnea, hypercholesterolemia, prostate cancer, and bladder cancer, arthritis. SURGICAL HISTORY: Cholecystectomy, knee surgery, hernia repair, bladder surgery, prostate removal. CURRENT MEDICATIONS: 1. Spiriva 1 puff a day. 2. Simvastatin 20 mg at bedtime. 3. Mirapex 1 at bedtime. 4. Multivitamins 1 a day. 5. Glucosamine chondroitin 1 a day. 6. Flonase one spray daily. ALLERGIES: NITROGLYCERIN. SOCIAL HISTORY: No alcohol use, no drug use, never smoked cigarettes. FAMILY HISTORY: Father had heart disease and hypertension. SYSTEMS REVIEW: HEENT: No upper respiratory infection symptoms, cough, cold, or congestion. No visual problems, throat problems, or nose problems. Cardiovascular: No chest pain, palpitations, or arrhythmias. Respiratory: No cough, cold, or congestion. He does have COPD that is stable at this time. We may need to give him the Spiriva while in the hospital. He has sleep apnea with snoring. Gastrointestinal: No nausea, vomiting, diarrhea, black stools or bloody stools. Genitourinary: No dysuria, hematuria, frequency, or burning on urination. Musculoskeletal: He has diffuse arthritis, but nothing debilitating at this time. His leg does not hurt, but is red from the knee down. Neurologic: No tremors, shakes, CVA paralysis or paresthesias, balance problems, or headaches. Endocrine: No diabetes or thyroid disease. Integument: No rash, ulcer, change in moles, or yellow skin. PHYSICAL EXAMINATION: GENERAL: Height is 5 feet 8 inches, weight is 220 pounds. VITAL SIGNS: Temperature is 98.6, pulse is 57, blood pressure 120/57, respiratory rate is 16, pulse oximetry is 93% on room air. HEENT: Pupils are equal, round, and reactive to light and accomodation. Extraocular muscles intact. Throat is clear. Nose is clear. Tympanic membranes are clear. NECK: Supple. No JVD or distention, no hepatojugular reflux, no carotid bruits. Thyroid is smooth. HEART: Regular rate and rhythm without murmurs, clicks, rubs, or gallops. LUNGS: Breath sounds are equal bilaterally. No wheezing noted. ABDOMEN: Obese, nontender on palpation. No hepatosplenomegaly, no rebound or rigidity. EXTREMITIES: The right lower extremity is red from the knee down. It is a feliciano red color. The left leg; no redness. He has a little bit of chronic venous circulation changes, not very bad. MUSCULOSKELETAL: No problems moving the arms and legs. BREASTS: Normal male breasts. RECTAL: Deferred. GENITALIA: Deferred. NEUROLOGIC: Cranial nerve II through XII intact. No gross defects. Sensation normal, strength normal. Deep tendon reflexes equal bilaterally. MENTAL STATUS: Alert and oriented x3. SKIN: See the chief complaint. He has redness and irritation from the knee down. IMPRESSION: 1. Cellulitis of the right lower leg. 2. Stable COPD. PLAN: IV Kefzol 1 gram q.8 hours and IV vancomycin 1 gram q.12 hours. Pharmacy to dose the vancomycin. MTDD
[2019-03-15 10:59] LABS: CREATININE 1.1 mg/dL (0.7-1.2); EST GLOMERULAR FILTRATION RATE > 60 mL/min
[2019-03-15] MEDS: PATIENT OWN MED: SIMVASTATIN 20 MG PO SCH (21:30)
[2019-03-15] MEDS: PRAMIPEXOLE DI HCL 1 MG PO SCH (21:30)
[2019-03-16] MEDS: CEFAZOLIN 1 Gram 1 GM/50 ML BAG IVPB SCH ×3 (01:26→18:40)
[2019-03-16] MEDS: VANCOMYCIN HCL 1,250 MG in 0.9 % SODIUM CHLORIDE 250ML 250 ML IVPB SCH ×2 (01:54→20:56)
[2019-03-16] MEDS: PATIENT OWN MED: SPIRIVA RESPIMAT INH SCH (09:46)
[2019-03-16] MEDS: ENOXAPARIN 30 MG/0.3 ML SYR SQ SCH (10:07)
[2019-03-16] MEDS: [UNRECOGNIZED DRUG - OTHER] PO SCH (10:07)
[2019-03-16] MEDS: LYCOPEN PO SCH (10:08)
[2019-03-16] MEDS: LUTEIN PO SCH (10:08)
[2019-03-16] MEDS: [UNRECOGNIZED DRUG - OTHER] PO SCH (10:08)
[2019-03-16] MEDS: PATIENT OWN MED: LISINOPRIL 20 MG PO SCH (10:08)
[2019-03-16] MEDS: MULTIVIT MIN PO SCH (10:08)
[2019-03-16] MEDS: PRAMIPEXOLE DI HCL 1 MG PO SCH (21:20)
[2019-03-16] MEDS: PATIENT OWN MED: SIMVASTATIN 20 MG PO SCH (21:20)
[2019-03-17] MEDS: CEFAZOLIN 1 Gram 1 GM/50 ML BAG IVPB SCH ×3 (02:56→18:57)
[2019-03-17] MEDS: ENOXAPARIN 30 MG/0.3 ML SYR SQ SCH (09:30)
[2019-03-17] MEDS: [UNRECOGNIZED DRUG - OTHER] PO SCH (09:31)
[2019-03-17] MEDS: LUTEIN PO SCH (09:32)
[2019-03-17] MEDS: PATIENT OWN MED: LISINOPRIL 20 MG PO SCH (09:32)
[2019-03-17] MEDS: LYCOPEN PO SCH (09:32)
[2019-03-17] MEDS: [UNRECOGNIZED DRUG - OTHER] PO SCH (09:32)
[2019-03-17] MEDS: MULTIVIT MIN PO SCH (09:32)
[2019-03-17] MEDS: PATIENT OWN MED: SPIRIVA RESPIMAT INH SCH (10:02)
[2019-03-17] MEDS: VANCOMYCIN HCL 1,250 MG in 0.9 % SODIUM CHLORIDE 250ML 250 ML IVPB SCH (13:01)
[2019-03-17] MEDS ORDERED: FUROSEMIDE IV 20MG/2ML VIAL IVP ONE (18:31)
[2019-03-17] MEDS ORDERED: LISINOPRIL 20 MG TABLET PO ONE (18:34)
[2019-03-17] MEDS: PRAMIPEXOLE DI HCL 1 MG PO SCH (21:42)
[2019-03-17] MEDS: PATIENT OWN MED: SIMVASTATIN 20 MG PO SCH (21:42)
[2019-03-18] MEDS: CEFAZOLIN 1 Gram 1 GM/50 ML BAG IVPB SCH ×2 (03:45→11:46)
--- NOTE | 2019-03-18 07:43 | CT ANGIOGRAM REPORT ---
EXAM: CT ANGIOGRAM OF THE CHEST WITH POST PROCESSING HISTORY: ELEVATED D-DIMER. TECHNIQUE: Standard CT angiography of the chest was performed with post processing following a bolus administration of 100 ml of Omnipaque 350. Additional coronal and sagittal maximum intensity projection reformatted images were performed on an independent workstation under concurrent supervision. Comparison: Previous abdominal CT scan dated 04/23/17. FINDINGS: Mild breathing motion artifact is present. The pulmonary arterial tree is otherwise normal. There is no pulmonary embolus. The aorta is normal in caliber. There is no dissection. There are moderate coronary artery calcifications. The heart is mildly enlarged. There is no pericardial effusion. There are scattered borderline enlarged mediastinal and hilar lymph nodes. These are nonspecific, but likely reactive in nature. A few calcified left hilar lymph nodes are also present. There are mild fibrotic changes within both lungs. There are no acute infiltrates or effusions. There is no pneumothorax. The chest wall and axillary regions appear normal. The visualized portions of the upper abdomen are unremarkable. There are no acute osseous abnormalities. IMPRESSION: 1. NO EVIDENCE FOR PULMONARY EMBOLUS OR OTHER ACUTE CARDIOPULMONARY PROCESS. 2. MILD PULMONARY FIBROSIS. 3. MODERATE CORONARY ARTERY CALCIFICATIONS. JOB NUMBER: [id number] [facility]
[2019-03-18 08:15] LABS: BLOOD UREA NITROGEN 18 mg/dL (8-23); CREATININE 1.1 mg/dL (0.7-1.2); EST GLOMERULAR FILTRATION RATE > 60 mL/min; GLUCOSE,RANDOM 109 mg/dL (74-109); VANCOMYCIN TROUGH 11.9 ug/mL (5.0-10.0)
[2019-03-18] MEDS: PATIENT OWN MED: LISINOPRIL 20 MG PO SCH (09:27)
[2019-03-18] MEDS: [UNRECOGNIZED DRUG - OTHER] PO SCH (09:31)
[2019-03-18] MEDS: ENOXAPARIN 30 MG/0.3 ML SYR SQ SCH (09:32)
[2019-03-18] MEDS: [UNRECOGNIZED DRUG - OTHER] PO SCH (09:33)
[2019-03-18] MEDS: LYCOPEN PO SCH (09:33)
[2019-03-18] MEDS: VANCOMYCIN HCL 1,250 MG in 0.9 % SODIUM CHLORIDE 250ML 250 ML IVPB SCH (09:33)
[2019-03-18] MEDS: MULTIVIT MIN PO SCH (09:33)
[2019-03-18] MEDS: LUTEIN PO SCH (09:33)
[2019-03-18] MEDS: PATIENT OWN MED: SPIRIVA RESPIMAT INH SCH (09:42)
[2019-03-18] MEDS ORDERED: LISINOPRIL 20 MG TABLET PO SCH (10:00)
[2019-03-18] MEDS ORDERED: PATIENT OWN MED: LISINOPRIL 20 MG PO SCH (10:00)
[2019-03-18] MEDS ORDERED: TRIAMTERENE 37.5/HCTZ 25 CAPSULE PO SCH (10:00)
[2019-03-18] MEDS ORDERED: TMP/SMZ 160MG/800MG TAB PO ONE (13:44)
--- NOTE | 2019-03-18 13:44 | Discharge Note ---
VTE H&P Assessment - Risk for VTE Risk for VTE: Yes Risk Level: Moderate Risk Assessment Date: 03/14/19 Risk Assessment Time: 19:00 VTE Orders Placed or Will Be Placed: Yes Discharge Medications - Discharge Medications Prescriptions: Cephalexin [Keflex] 500 mg PO QID #40 cap Lisinopril 40 mg PO DAILY #30 tab Sulfamethoxazole/Trimethoprim [Bactrim Ds Tablet] 1 each PO BID #20 tablet Triamterene/Hydrochlorothiazid [Dyazide] 1 udcap PO DAILY #30 capsule Home Medications: Ambulatory Orders Glucosam/Kevyn-Msm1/C/Jason/Bosw [Osteo Bi-Flex] 1 tab PO DAILY 04/15/15 [Last Taken 04/26/16] Multivit-Min/FA/Vit K/Lycopene [One-A-Day Men's 50 Plus Tablet] 1 each PO DAILY 03/14/19 [Last Taken Unknown] Pramipexole Di-HCl [Mirapex] 1 mg PO QHS 03/14/19 [Last Taken Unknown] Simvastatin 20 mg PO QHS 03/14/19 [Last Taken Unknown] Tiotropium Taylor [Spiriva Respimat] 2 puff INH DAILY 03/14/19 [Last Taken Unknown] Acetaminophen [Tylenol 500Mg Tab] 1,000 mg PO Q6H PRN tablet 03/18/19 [Last Taken Unknown] Cephalexin [Keflex] 500 mg PO QID #40 cap 03/18/19 [Last Taken Unknown] Lisinopril 40 mg PO DAILY #30 tab 03/18/19 [Last Taken Unknown] Sulfamethoxazole/Trimethoprim [Bactrim Ds Tablet] 1 each PO BID #20 tablet 03/18 [Last Taken Unknown] Triamterene/Hydrochlorothiazid [Dyazide] 1 udcap PO DAILY #30 capsule 03/18/19 [ Last Taken Unknown] Discharge Note - Date Date of Discharge Note: 03/18/19 Disposition: Home, Self-Care Condition: (1) Good Additional Instructions: Follow up with Ivonne Newell at [facility] on 03/20/19 at 9:00AM as scheduled use compression socks thigh high all day and off at night take keflex 500 mg four times a day bactrim ds twice aday new water pill dyazide one a day lisinopril increased to 40 mg per day to bring his BP down elevate leg when not walking around Prescriptions: Cephalexin [Keflex] 500 mg PO QID #40 cap Lisinopril 40 mg PO DAILY #30 tab Sulfamethoxazole/Trimethoprim [Bactrim Ds Tablet] 1 each PO BID #20 tablet Triamterene/Hydrochlorothiazid [Dyazide] 1 udcap PO DAILY #30 capsule Referrals: Ivonne Newell N.P. [Primary Care Provider] - Forms: Patient Portal Access Activity at Discharge: Increase Activity as Tolerated
[2019-03-18] MEDS ORDERED: CEPHALEXIN 500 MG CAPSULE PO STA (14:06)
--- NOTE | 2019-03-18 15:01 | Discharge Summary ---
DATE: 03/18/2019 at 2 p.m. DISCHARGE DIAGNOSES: 1. Cellulitis of the right lower leg. 2. Hypertension. 3. Stable chronic obstructive pulmonary disease. 4. Mild peripheral arterial disease. Arterial Doppler done. No stenosis. Some plaquing of the arteries. Elevated D-dimer and a CTA of the chest which is negative for PE. Venous Dopplers of both legs negative for DVT. ATTENDING PHYSICIAN: Lucas Oliveros DO REASON FOR HOSPITALIZATION: This 83-year-old male presented to the emergency department with a swollen right lower leg that started 2-3 days prior to coming to the hospital. He was seen in the emergency department by Dr. Rojo, admitted to the hospital for cellulitis of the right lower leg. He states that he has never had this happen before. SIGNIFICANT FINDINGS: Venous Doppler of both legs done in the emergency department was negative for DVT. Arterial Dopplers done on the day of discharge showing some plaquing of the arteries but no stenosis, no significant flow restriction, so it is safe to use compression socks. CTA of the chest because his D-dimer was elevated in the emergency department, which was negative for PE. EKG showing normal sinus rhythm. No acute changes. WBC 9900, hemoglobin 15.3. The last set of electrolytes, the sodium was 139, potassium 3.9, chloride 100. His BUN is 18, creatinine 1.1. His lactic acid in the emergency department was 1.4. The urine in the emergency department was essentially negative. Some protein in the urine. Trace ketones. Vancomycin trough was good at 11.9 on 03/18/2019. THERAPY PROVIDED: Initially given IV Kefzol and vancomycin IV. The leg gradually improved but not very quickly. Did start retracting. The colors became less brightly red and more maroon color. It is going to take a long time to resolve as far as the coloration of the leg. On the day of discharge, we switched him over to Keflex 500 mg 4 times a day and Bactrim double strength b.i.d. for 10 days each. Also, his blood pressure was running a little bit high. We gave one dose of Lasix and started him on Dyazide 1 pill a day for his hypertension and also to prevent any edema in his legs. His lisinopril was also increased to 40 mg a day to correct his blood pressure. A 30-day supply was sent in to [facility], so a month's worth at 40 mg a day. HOSPITAL COURSE: The patient gradually got better. We also sized him for compression socks, knee high, to help with any edema in his leg. CONDITION ON DISCHARGE: Good, stable. However, this will take a while to heal. DISCHARGE INSTRUCTIONS: Follow up with Ivonne Newell as scheduled on 03/20/2019. Elevate the leg when not walking around. Wear compression socks during the day. Can take them off at night. HOME MEDICATIONS: 1. Keflex 500 mg q.i.d. for 10 days. 2. Bactrim double strength b.i.d. for 10 days. 3. Dyazide 1 a day, new medication. 4. Lisinopril, new dosage, 40 mg a day. 5. Simvastatin 20 mg at h.s. 6. Mirapex 1 mg at h.s. 7. Osteo Bi-Flex 1 a day. 8. Multivitamins 1 a day. 9. Spiriva Respimat 2 puffs daily. MTDD
--- NOTE | 2019-03-18 15:11 | US ARTERIAL DOPPLER REPORT ---
EXAM: ARTERIAL DOPPLER OF THE BILATERAL LOWER EXTREMITIES HISTORY: PERIPHERAL ARTERIAL DISEASE. TECHNIQUE: Bilateral lower extremity arterial ultrasound with the addition of Doppler and color flow was obtained. Comparison: None. FINDINGS: 3 Right Waveform Left Waveform Common Femoral Artery 125 cm/s Biphasic 110 cm/s Triphasic Profunda Femoral Artery 64 cm/s Biphasic 68 cm/s Biphasic Proximal Superficial Femoral Artery 95 cm/s Triphasic 96 cm/s Biphasic Mid Superficial Femoral Artery 110 cm/s Triphasic 111 cm/s Biphasic Distal Superficial Femoral Artery 113 cm/s Triphasic 94 cm/s Biphasic Popliteal Artery 53 cm/s Biphasic 48 cm/s Biphasic Anterior Tibial Artery 49 cm/s Biphasic 34 cm/s Biphasic Posterior Tibial Artery 64 cm/s Biphasic 74 cm/s Biphasic Peroneal Artery 62 cm/s Biphasic 63 cm/s Biphasic Dorsalis Pedis Artery 50 cm/s Biphasic 25 cm/s Monophasic The right ankle brachial index is 1.3. The left ankle brachial index is 1.2. Calcified plaque is seen along the courses of the lower extremity arteries bilaterally. IMPRESSION: BILATERAL LOWER EXTREMITY ATHEROSCLEROSIS WITHOUT DOPPLER EVIDENCE OF OCCLUSION OR HIGH GRADE FOCAL STENOSIS. FINDINGS GREATEST AT THE LEFT DORSAL PEDIS ARTERY WHERE THERE IS ASYMMETRICALLY DECREASED VELOCITY AND A MONOPHASIC WAVEFORM. JOB NUMBER: [id number] MTDD
[2019-03-18] MEDS ORDERED: VANCOMYCIN HCL 1,000 MG in 0.9 % SODIUM CHLORIDE 250ML 250 ML IVPB SCH (22:00)
== END 2019-03-18 15:00 | disposition home or self-care (01) | DRG 603 ==
LOC: ER 07:23 → MEDSURG 12:05
PROVIDERS: ADMIT Emergency Medicine; ATTEND Emergency Medicine
DX: L03.115 Cellulitis of right lower limb (principal); I10 Essential (primary) hypertension; E78.5 Hyperlipidemia, unspecified; I25.10 Atherosclerotic heart disease of native coronary artery without angina pectoris; J44.9 Chronic obstructive pulmonary disease, unspecified; G47.33 Obstructive sleep apnea (adult) (pediatric); M19.90 Unspecified osteoarthritis, unspecified site; Z85.46 Personal history of malignant neoplasm of prostate; Z85.51 Personal history of malignant neoplasm of bladder
CPT/HCPCS: 71275; 80048; 80053; 80202; 81001; 82565; 83605; 83880; 85027; 85379; 85610; 90732; 93005; 93010; 93925; 93970; 94640; 94760; 96374; 99223; 99232; 99233; 99239; 99285; J0690; J1650; J1940; J7050

== ENCOUNTER 2019-03-26 12:15 | Inpatient (IN) | payer MEDICARE, BC ==
[2019-03-26] MEDS ORDERED: 0.9 % SODIUM CHLORIDE 1,000 ML BAG IV ONE (12:38)
[2019-03-26 12:55] LABS: ABSOLUTE NEUTROPHIL COUNT 5.93; HEMATOCRIT 47.6 % (42.0-52.0); HEMOGLOBIN 15.2 gm/dl (14.0-18.0); MEAN CELL VOLUME 93.3 fl (81-97); MEAN CORPUSCULAR HEMOGLOBIN 29.8 pg (27-33); MEAN CORPUSCULAR HGB CONC 31.9 g/dl (32-36); MEAN PLATELET VOLUME 9.2 fl (7.4-10.4); PLATELET COUNT 313 K/uL (130-400); RED CELL DISTRIBUTION WIDTH 14.3 % (11.5-14.5); WHITE BLOOD COUNT W/O DIFF 9.2 K/uL (4.2-12.2)
[2019-03-26 13:02] LABS: PLATELET ESTIMATE NORMAL (NORMAL)
[2019-03-26 13:13] LABS: NTpro B-NATRIURETIC PEPTIDE 28.4 pg/mL (<450)
[2019-03-26] MEDS ORDERED: SPS 15 GM/60 ML PO ONE (13:16)
--- NOTE | 2019-03-26 13:23 | Emergency Department Record ---
History of Present Illness - General Chief Complaint: General Stated Complaint: ABNORMAL LABS Time Seen by Provider: 03/26/19 12:19 Source: Patient Mode of Arrival: Ambulatory Limitations: No limitations - History of Present Illness Initial comments: pt was recently admitted to the hospital for cellulitis and during that time hehad normal renal fxn. he had a ct w iv contrast, dyazide, lasix and vancomycin. now he has decreased renal fxn w a gfr of 32 -: Days(s) Consistency: Getting worse Associated Symptoms: Denies other symptoms - [place] Coma Scale Eye Response: (4) Open spontaneously Motor Response: (6) Obeys commands Verbal Response: (5) Oriented [place] Total: 15 - Related Data Home Medications Medication Instructions Recorded Confirmed Last Taken Lisinopril 20 mg PO DAILY 03/26/19 03/26/19 03/26/19 Previous Rx's Medication Instructions Recorded Acetaminophen [Tylenol 500Mg Tab] 1,000 mg PO Q6H PRN tablet 03/18/19 Sulfamethoxazole/Trimethoprim 1 each PO BID #20 tablet 03/18/19 [Bactrim Ds Tablet] Triamterene/Hydrochlorothiazid 1 udcap PO DAILY #30 capsule 03/18/19 [Dyazide] Allergies Allergy/AdvReac Type Severity Reaction Status Date / Time nitroglycerin Allergy Intermediate ALTERED Verified 03/26/19 12:18 [From Nitrostat] MENTAL STATUS Travel Screening - Travel/Exposure Within Last 30 Days Have you traveled within the last 30 days?: No - Travel/Exposure Within Last Year Have you traveled outside the [place] in the last year?: No - Additonal Travel Details Have you been exposed to anyone with a communicable illness?: No - Travel Symptoms Symptom Screening: None Review of Systems Reviewed: No additional complaints except as noted below Constitutional: Reports: As per HPI. Denies: Chills, Fever, Malaise, Night sweats, Weakness, Weight change Eyes: Reports: As per HPI. Denies: Eye discharge, Eye pain, Photophobia, Vision change ENT: Reports: As per HPI. Denies: Congestion, Dental pain, Ear pain, Epistaxis, Hearing loss, Throat pain Respiratory: Reports: As per HPI. Denies: Cough, Dyspnea, Hemoptysis, Stridor, Wheezes Cardiovascular: Reports: As per HPI. Denies: Arrhythmia, Chest pain, Dyspnea on exertion, Edema, Murmurs, Orthopnea, Palpitations, Paroxysmal nocturnal dyspnea, Rheumatic Fever, Syncope Endocrine: Reports: As per HPI. Denies: Fatigue, Heat or cold intolerance, Polydipsia, Polyuria Gastrointestinal: Reports: As per HPI. Denies: Abdominal pain, Constipation, Diarrhea, Hematemesis, Hematochezia, Melena, Nausea, Vomiting Genitourinary: Reports: As per HPI. Denies: Dysuria, Frequency, Hematuria, Incontinence, Retention, Testicular pain, Testicular mass, Urgency Musculoskeletal: Reports: As per HPI. Denies: Arthralgia, Back pain, Gout, Joint swelling, Myalgia, Neck pain Skin: Reports: As per HPI. Denies: Bruising, Change in color, Change in hair/nails, Lesions, Pruritus, Rash Neurological: Reports: As per HPI. Denies: Abnormal gait, Confusion, Headache, Numbness, Paresthesias, Seizure, Tingling, Tremors, Vertigo, Weakness Psychiatric: Reports: As per HPI. Denies: Anxiety, Auditory hallucinations, Depression, Homicidal thoughts, Suicidal thoughts, Visual hallucinations Hematological/Lymphatic: Reports: As per HPI. Denies: Anemia, Blood Clots, Easy bleeding, Easy bruising, Swollen glands Past Medical History - SOCIAL HISTORY Smoking Status: Never smoker Alcohol Use: None Drug Use: None - RESPIRATORY Hx Respiratory Disorders: Yes Hx Sleep Apnea: Yes Hx of CPAP: Yes - CARDIOVASCULAR Hx Cardio Disorders: Yes Hx Hypertension: Yes Hx Coronary Artery Disease: Yes (HYPERLIPIDEMIA) - NEURO Hx Neuro Disorders: No - GI Hx GI Disorders: Yes Hx of Polyps: Yes - Hx Genitourinary Disorders: Yes Hx Prostate Problems: Yes (cancer) Comment:: ERECTILE DYSFUNCTION - ENDOCRINE Hx Endocrine Disorders: No - MUSCULOSKELETAL Hx Musculoskeletal Disorders: Yes Hx Arthritis: Yes - PSYCH Hx Psych Problems: No - HEMATOLOGY/ONCOLOGY Hx Hematology/Oncology Disorders: Yes Hx Cancer: Yes Hx Chemotherapy: No Hx Radiation Therapy: No Family Medical History Any Significant Family History?: Yes Hx Heart Disease: Father Hx HTN: Father Physical Exam - General General Appearance: Alert, Oriented x3, Cooperative, Mild distress - Head Head exam: Normal inspection - Eye Eye exam: Normal appearance, PERRL, EOMI Pupils: Normal accommodation - ENT ENT exam: Normal exam, Mucous membranes moist, Normal external ear exam, Normal orophraynx Ear exam: Normal external inspection. negative: External canal tenderness Nasal Exam: Normal inspection. negative: Discharge, Sinus tenderness Mouth exam: Normal external inspection, Tongue normal Teeth exam: Normal inspection. negative: Dental caries Throat exam: Normal inspection. negative: Tonsillar erythema, Tonsillar exudate - Neck Neck exam: Normal inspection, Full ROM. negative: Tenderness - Respiratory Respiratory exam: Normal lung sounds bilaterally. negative: Respiratory distress - Cardiovascular Cardiovascular Exam: Regular rate, Normal rhythm, Normal heart sounds - GI/Abdominal GI/Abdominal exam: Soft, Normal bowel sounds. negative: Tenderness - Rectal Rectal exam: Deferred - exam: Deferred - Extremities Extremities exam: Normal inspection, Full ROM, Normal capillary refill. negative: Tenderness - Back Back exam: Reports: Normal inspection, Full ROM. Denies: Muscle spasm, Rash noted, Tenderness - Neurological Neurological exam: Alert, CN II-XII intact, Normal gait, Oriented X3 - Psychiatric Psychiatric exam: Normal affect, Normal mood - Skin Skin exam: Dry, Intact, Normal color, Warm Course Vital Signs 03/26/19 12:21 Temperature 98.2 F Pulse Rate 61 Respiratory 18 Rate Blood Pressure 106/64 Pulse Ox 94 L Medical Decision Making - Lab Data Result diagrams: 03/26/19 12:45 03/26/19 12:45 Lab Results 03/26/19 03/26/19 Range/Units 12:45 12:45 WBC 9.2 (4.2-12.2) K/uL RBC 5.10 (4.40-5.70) M/uL Hgb 15.2 (14.0-18.0) gm/dl Hct 47.6 (42.0-52.0) % MCV 93.3 (81-97) fl MCH 29.8 (27-33) pg MCHC 31.9 L (32-36) g/dl RDW 14.3 (11.5-14.5) % Plt Count 313 (130-400) K/uL MPV 9.2 (7.4-10.4) fl Neutrophils % 69.0 (47-80) % Eosinophils % Not Reportable Basophils % Not Reportable Absolute Neutrophils 5.93 Lymphocytes 23.0 (16-45) % Monocytes 3.0 (0-9) % Platelet Estimate Normal (NORMAL) RBC Morphology Normal Eosinophil Count 5.0 (0-6) % Sodium 136 (136-145) mmol/L Potassium 5.4 H (3.4-4.5) mmol/L Chloride 99 (98-107) mmol/L Carbon Dioxide 25.0 (22-29) mmol/L Anion Gap 12.0 (7-16) BUN 39 H (8-23) mg/dL Creatinine 2.0 H (0.7-1.2) mg/dL Estimated GFR 34 mL/min Random Glucose 86 (74-109) mg/dL Calcium 9.3 (8.8-10.2) mg/dL NT-Pro-B Natriuret Pep 28.40 (<450) pg/mL Disposition Disposition: Admit Clinical Impression: Renal insufficiency, Hyperkalemia Disposition: Still a Patient at [facility] Decision to Admit: Admit from ER Decision to Admit Date: 03/26/19 Decision to Admit Time: 13:43 Forms: Patient Portal Access Quality - Quality Measures Quality Measures: N/A - Blood Pressure Screening Does Patient Have Any of the Following: No Blood Pressure Classification: Normal BP Reading Systolic Measurement: 106 Diastolic Measurement: 64 Screening for High Blood Pressure: < Normal BP, F/U Not Required > [G8783]
[2019-03-26] MEDS ORDERED: ACETAMINOPHEN 500 MG TABLET PO PRN (15:40)
[2019-03-26] MEDS: 0.9 % SODIUM CHLORIDE 1000ML 1,000 ML IV PRN (17:00)
[2019-03-26] MEDS: PRAMIPEXOLE DI-HCL 0.25 MG TABLET PO SCH (21:16)
[2019-03-26] MEDS: CEFDINIR 300 MG CAPSULE PO SCH (21:16)
[2019-03-26] MEDS: SIMVASTATIN 20 MG TABLET PO SCH (21:17)
[2019-03-26] MEDS ORDERED: TMP/SMZ 160MG/800MG TAB PO SCH (22:00)
[2019-03-27] MEDS: 0.9 % SODIUM CHLORIDE 1000ML 1,000 ML IV PRN ×3 (03:06→22:57)
[2019-03-27 07:12] LABS: CREATININE 1.5 mg/dL (0.7-1.2)
[2019-03-27] MEDS ORDERED: LISINOPRIL 20 MG TABLET PO SCH (10:00)
--- NOTE | 2019-03-27 10:07 | History & Physical ---
History of Present Illness - Date of Service Date of Service for History & Physical: 03/27/19 - History of Present Illness Admitting Diagnosis: renal insufficiency, hyperklemia History of Present Illness: Jocelyn Marin is an 83 y.o. M who was recently hospitalized from 03/14/19 to 03/18/19 for RLE cellulitis. During that hospital stay, he had a Chest CTA with contrast and received IV antibiotics. At discharge, he was sent home on Keflex BID, Bactrim DS BID, was started on Dyazide for blood pressure control and also had his Lisinopril increased to 40mg daily. Had f/u with PCP, Ivonne Newell on 03/20/18 where Keflex was changed to Cefdinir (per pt refusal to take Keflex) and Lisinopril was decreased to 20mg. He then had labwork, as ordered by PCP, done on 03/26/19 which showed BUN 39, Creat 2.0, eGFR 34, K+ 5.4 indicating FABRIZIO. He was sent to ER by PCP. PMHx: Reactive airway disease, COPD, cellulitis and HTN 03/27/19 1045 Vitals: T 97.6 HR 55, BP 114/56 RR 16 SpO2 93% RA Resting in bed with friend at beside. A&Ox3 with no s/sx of distress. Reports that he is feeling well and that he actually felt fine the previous day as well although he wasn't peeing much. Feels that his RLE looks better. Denies having any pain or discomfort. Travel Screening - Travel/Exposure Within Last 30 Days Have you traveled within the last 30 days?: No - Travel/Exposure Within Last Year Have you traveled outside the [place] in the last year?: No - Additonal Travel Details Have you been exposed to anyone with a communicable illness?: No - Travel Symptoms Symptom Screening: None Review of Systems Reviewed: No additional complaints except as noted below Constitutional: Reports: As per HPI. Denies: Chills, Fever, Malaise, Night sweats, Weakness, Weight change Eyes: Reports: As per HPI. Denies: Eye discharge, Eye pain, Photophobia, Vision change ENT: Reports: As per HPI. Denies: Congestion, Dental pain, Ear pain, Epistaxis, Hearing loss, Throat pain Respiratory: Reports: As per HPI. Denies: Cough, Dyspnea, Hemoptysis, Stridor, Wheezes Cardiovascular: Reports: As per HPI. Denies: Arrhythmia, Chest pain, Dyspnea on exertion, Edema, Murmurs, Orthopnea, Palpitations, Paroxysmal nocturnal dyspnea, Rheumatic Fever, Syncope Endocrine: Reports: As per HPI. Denies: Fatigue, Heat or cold intolerance, Polydipsia, Polyuria Gastrointestinal: Reports: As per HPI. Denies: Abdominal pain, Constipation, Diarrhea, Hematemesis, Hematochezia, Melena, Nausea, Vomiting Genitourinary: Reports: As per HPI. Denies: Dysuria, Frequency, Hematuria, Incontinence, Retention, Testicular pain, Testicular mass, Urgency Musculoskeletal: Reports: As per HPI. Denies: Arthralgia, Back pain, Gout, Joint swelling, Myalgia, Neck pain Skin: Reports: As per HPI. Denies: Bruising, Change in color, Change in hair/nails, Lesions, Pruritus, Rash Neurological: Reports: As per HPI. Denies: Abnormal gait, Confusion, Headache, Numbness, Paresthesias, Seizure, Tingling, Tremors, Vertigo, Weakness Psychiatric: Reports: As per HPI. Denies: Anxiety, Auditory hallucinations, Depression, Homicidal thoughts, Suicidal thoughts, Visual hallucinations Hematological/Lymphatic: Reports: As per HPI. Denies: Anemia, Blood Clots, Easy bleeding, Easy bruising, Swollen glands Past Medical History - SOCIAL HISTORY Smoking Status: Never smoker - RESPIRATORY Hx Respiratory Disorders: Yes Hx Sleep Apnea: Yes Hx of CPAP: Yes - CARDIOVASCULAR Hx Cardio Disorders: Yes Hx Hypertension: Yes Hx Coronary Artery Disease: Yes (HYPERLIPIDEMIA) - NEURO Hx Neuro Disorders: No - GI Hx GI Disorders: Yes Hx of Polyps: Yes - Hx Genitourinary Disorders: Yes Hx Prostate Problems: Yes (cancer) Comment:: ERECTILE DYSFUNCTION - ENDOCRINE Hx Endocrine Disorders: No - MUSCULOSKELETAL Hx Musculoskeletal Disorders: Yes Hx Arthritis: Yes - PSYCH Hx Psych Problems: No - HEMATOLOGY/ONCOLOGY Hx Hematology/Oncology Disorders: Yes Hx Cancer: Yes Hx Chemotherapy: No Hx Radiation Therapy: No Family Medical History Any Significant Family History?: Yes Hx Heart Disease: Father Hx HTN: Father H&P Meds/Allergies - Allergies Allergies: Allergies Allergy/AdvReac Type Severity Reaction Status Date / Time nitroglycerin Allergy Intermediate ALTERED Verified 03/26/19 12:18 [From Nitrostat] MENTAL STATUS - Home Medications Home Medications Medication Instructions Recorded Confirmed Last Taken Lisinopril 20 mg PO DAILY 03/26/19 03/26/19 03/26/19 Previous Rx's Medication Instructions Recorded Acetaminophen [Tylenol 500Mg Tab] 1,000 mg PO Q6H PRN tablet 03/18/19 Sulfamethoxazole/Trimethoprim 1 each PO BID #20 tablet 03/18/19 [Bactrim Ds Tablet] Triamterene/Hydrochlorothiazid 1 udcap PO DAILY #30 capsule 03/18/19 [Dyazide] - Active Medications Active Medications: Current Medications Acetaminophen (Tylenol 500mg Tab) 1,000 mg PO Q6H PRN PRN Reason: PAIN - MILD(1-4)/FEVER Cefdinir (Cefdinir) 300 mg PO Q12H [facility] Last Admin: 03/26/19 21:16 Dose: 300 mg Documented by: Sodium Chloride () 1,000 mls @ 100 mls/hr IV .Q10H PRN PRN Reason: LARGE VOLUME IV Last Admin: 03/27/19 03:06 Dose: 100 mls/hr Documented by: Linezolid (Linezolid) 600 mg PO BID [facility] Pramipexole Dihydrochloride (Pramipexole Dihydrochloride) 1 mg PO QHS [facility] Last Admin: 03/26/19 21:16 Dose: 1 mg Documented by: Simvastatin (Zocor) 20 mg PO QHS [facility] Last Admin: 03/26/19 21:17 Dose: 20 mg Documented by: Physical Exam - Vital Signs Vital Signs: Vital Signs - Last 24 Hrs Temp Pulse Pulse Resp BP BP Pulse Ox 03/27/19 09:00 97.6 F 55 L 18 114/56 93 L 03/27/19 08:15 18 03/27/19 04:03 97.7 F 63 18 132/84 97 03/26/19 21:40 97.9 F 61 18 137/64 98 03/26/19 21:00 61 18 03/26/19 15:46 16 03/26/19 15:40 97.8 F 59 L 16 138/64 98 03/26/19 15:02 56 L 20 118/57 97 03/26/19 13:41 54 L 16 115/54 94 L 03/26/19 12:21 98.2 F 61 18 106/64 94 L - General General Appearance: Alert, Oriented x3, Cooperative, No acute distress Limitations: No limitations - Head Head exam: Normal inspection - Eye Eye exam: Normal appearance, PERRL, EOMI Pupils: Normal accommodation - ENT ENT exam: Normal exam, Mucous membranes moist, Normal external ear exam, Normal orophraynx Ear exam: Normal external inspection. negative: External canal tenderness Nasal Exam: Normal inspection. negative: Discharge, Sinus tenderness Mouth exam: Normal external inspection, Tongue normal Teeth exam: Normal inspection. negative: Dental caries Throat exam: Normal inspection. negative: Tonsillar erythema, Tonsillar exudate - Neck Neck exam: Normal inspection, Full ROM. negative: Tenderness - Respiratory Respiratory exam: Normal lung sounds bilaterally. negative: Respiratory distress - Cardiovascular Cardiovascular Exam: Regular rate, Normal rhythm, Normal heart sounds - GI/Abdominal GI/Abdominal exam: Soft, Normal bowel sounds. negative: Tenderness - Rectal Rectal exam: Deferred - exam: Deferred - Extremities Extremities exam: Normal inspection, Full ROM, Normal capillary refill. negative: Tenderness - Back Back exam: Reports: Normal inspection, Full ROM. Denies: Muscle spasm, Rash noted, Tenderness - Neurological Neurological exam: Alert, CN II-XII intact, Normal gait, Oriented X3 - Psychiatric Psychiatric exam: Normal affect, Normal mood - Skin Skin exam: Dry, Intact, Normal color, Warm, Other (Redness to RLE, receding from previously drawn lines) Results - Labs Result Diagrams: 03/26/19 12:45 03/27/19 06:37 Labs Last 24 Hours: Laboratory Results - last 24 hr 03/26/19 03/26/19 03/27/19 12:45 12:45 06:37 WBC 9.2 RBC 5.10 Hgb 15.2 Hct 47.6 MCV 93.3 MCH 29.8 MCHC 31.9 L RDW 14.3 Plt Count 313 MPV 9.2 Neutrophils % 69.0 Eosinophils % Not Reportable Basophils % Not Reportable Absolute Neutrophils 5.93 Lymphocytes 23.0 Monocytes 3.0 Platelet Estimate Normal RBC Morphology Normal Eosinophil Count 5.0 Sodium 136 135 L Potassium 5.4 H 5.3 H Chloride 99 102 Carbon Dioxide 25.0 22.0 Anion Gap 12.0 11.0 BUN 39 H 27 H Creatinine 2.0 H 1.5 H Estimated GFR 34 48 Random Glucose 86 87 Calcium 9.3 8.5 L NT-Pro-B Natriuret Pep 28.40 VTE H&P Assessment - Risk for VTE Risk for VTE: Yes Risk Level: High Risk Assessment Date: 03/27/19 Risk Assessment Time: 10:45 VTE Orders Placed or Will Be Placed: No VTE Reason for No Prophylaxis: Complication of Medical Care (Pt ambulating well, not bed bound) Plan - Inpatient Certification Inpatient Certification: Admit to inpatient care: Based on my medical assessment, after consideration of patient's risk factors (age, co-morbidities and patient presenting symptoms and acuity), I expect that this patient will remain in the hospital greater than or equal to two midnights and that the services needed warrant inpatient care because: Patient Risk Factors: [] Estimated length of stay: [] The patient may reasonably be expected to be discharged or transferred to a hospital within 96 hours after admission to [facility]. Services needed: [] Post hospital care (if known): [] I certify that my determination is in accordance with my understanding of Medicare requirements for reasonable and necessary inpatient services. - Detailed Diagnosis and Plan (1) Acute kidney injury Current Visit: Yes Status: Acute Base Code: N17.9 - ACUTE KIDNEY FAILURE, UNSPECIFIED Comment: 03/27/19 -BUN improved from 39 to 27, Creatinine improved from 2.0 to 1.5, eGFR improved from 34 to 48 -Baseline GFR is >60 -Continue IV NS @ 100ml/hr -Stopped Dyazide and Bactrim, holding Lisinopril d/t nephrotoxicity -BMP to be drawn in the a.m. on 03/28/19 (2) Cellulitis of right lower leg Current Visit: No Status: Acute Base Code: L03.115 - CELLULITIS OF RIGHT LOWER LIMB Comment: 03/27/19 -Redness and swelling well below outline drawn during inpatients stay from 03/14/19 to 03/18/19 -Continue Cefdinir 300mg BID x 3 more days (started on 03/20/19) -Bactrim stopped d/t nephrotoxicity. -Start Zyvox 600mg PO BID x 5 days (3) Hyperkalemia Current Visit: Yes Status: Acute Base Code: E87.5 - HYPERKALEMIA Comment: 03/27/19 -K+ slightly improved from 5.4 to 5.3 -Lisinopril on hold -BMP to be drawn in the a.m. (4) Full code status Current Visit: Yes Status: Acute Base Code: Z78.9 - OTHER SPECIFIED HEALTH STATUS (5) DVT prophylaxis Current Visit: Yes Status: Acute Base Code: Z29.9 - ENCOUNTER FOR PROPHYLA CTIC MEASURES, UNSPECIFIED Comment: 03/27/19 -High risk d/t age and co-morbidities -Pt ambulating around room well, nursing to continue to encourage ambulation
[2019-03-27] MEDS: LINEZOLID 600 MG TABLET PO SCH ×2 (10:15→21:56)
[2019-03-27] MEDS: CEFDINIR 300 MG CAPSULE PO SCH ×2 (10:15→21:46)
[2019-03-27] MEDS: UMECLIDINIUM BROMIDE (INCRUSE) 62.5MCG IH SCH (14:22)
[2019-03-27] MEDS: SIMVASTATIN 20 MG TABLET PO SCH (21:46)
[2019-03-27] MEDS: PRAMIPEXOLE DI-HCL 0.25 MG TABLET PO SCH (21:46)
[2019-03-28 07:38] LABS: CREATININE 1.4 mg/dL (0.7-1.2)
[2019-03-28] MEDS: CEFDINIR 300 MG CAPSULE PO SCH (09:18)
[2019-03-28] MEDS: 0.9 % SODIUM CHLORIDE 1000ML 1,000 ML IV PRN (09:19)
[2019-03-28] MEDS: UMECLIDINIUM BROMIDE (INCRUSE) 62.5MCG IH SCH (09:46)
[2019-03-28] MEDS: LINEZOLID 600 MG TABLET PO SCH (09:52)
[2019-03-28] MEDS ORDERED: SPS 15 GM/60 ML PO STA (10:18)
--- NOTE | 2019-03-28 11:22 | Discharge Summary ---
Providers Discharge Summary Date: 03/28/19 Date of admission: 03/26/19 14:48 Attending physician: NOE BONNER Primary care physician: Ivonne Newell N.P. Physical Exam - Vital Signs Vital Signs: Vital Signs - Last 24 Hrs Temp Pulse Pulse Resp BP Pulse Ox 03/28/19 09:50 67 18 98 03/28/19 09:00 48 L 18 03/28/19 08:18 97.5 F L 48 L 16 121/48 97 03/28/19 04:15 94 H 18 101/61 93 L 03/28/19 00:52 97 H 20 126/60 93 L 03/27/19 21:00 66 20 03/27/19 20:00 97.6 F 66 20 156/71 96 03/27/19 17:00 98.4 F 66 18 112/69 93 L 03/27/19 14:22 58 L 16 93 L 03/27/19 13:00 98.1 F 63 16 90/55 100 - General General Appearance: Alert, Oriented x3, Cooperative, No acute distress Limitations: No limitations - Head Head exam: Normal inspection - Eye Eye exam: Normal appearance, PERRL, EOMI Pupils: Normal accommodation - ENT ENT exam: Normal exam, Mucous membranes moist, Normal external ear exam, Normal orophraynx Ear exam: Normal external inspection. negative: External canal tenderness Nasal Exam: Normal inspection. negative: Discharge, Sinus tenderness Mouth exam: Normal external inspection, Tongue normal Teeth exam: Normal inspection. negative: Dental caries Throat exam: Normal inspection. negative: Tonsillar erythema, Tonsillar exudate - Neck Neck exam: Normal inspection, Full ROM. negative: Tenderness - Respiratory Respiratory exam: Normal lung sounds bilaterally. negative: Respiratory distress - Cardiovascular Cardiovascular Exam: Regular rate, Normal rhythm, Normal heart sounds - GI/Abdominal GI/Abdominal exam: Soft, Normal bowel sounds. negative: Tenderness - Rectal Rectal exam: Deferred - exam: Deferred - Extremities Extremities exam: Normal inspection, Full ROM, Normal capillary refill. negative: Tenderness - Back Back exam: Reports: Normal inspection, Full ROM. Denies: Muscle spasm, Rash noted, Tenderness - Neurological Neurological exam: Alert, CN II-XII intact, Normal gait, Oriented X3 - Psychiatric Psychiatric exam: Normal affect, Normal mood - Skin Skin exam: Dry, Intact, Normal color, Warm, Other (Redness to RLE, receding from previously drawn lines) Hospitalization - Hospitalization Admission Diagnosis: renal insufficiency, hyperklemia - Problem List/Discharge Diagnosis (1) Acute kidney injury Status: Acute Base Code: N17.9 - ACUTE KIDNEY FAILURE, UNSPECIFIED Comment: 03/28/19 -BUN improved from 27 to 22, Creatinine 1.5 to 1.4, GFR 48 to 52 -Baseline GFR is >60 -Continue stop on Dyazide and Lisinopril -Has f/u with PCP on 04/09/19 -Instructed to have labs drawn on 04/02 or 04/03 to evaluate kidney function and K+ prior to going out of town for weekend (2) Cellulitis of right lower leg Status: Acute Base Code: L03.115 - CELLULITIS OF RIGHT LOWER LIMB Comment: 03/28/19 -Erythema and edema well receded from drawn line. -No home script for Zyvox d/t insurance likely not paying -had at least 9 days worth of Bactrim -Continue Cefdinir 300mg PO BID x 5 more doses (3) Hyperkalemia Status: Acute Base Code: E87.5 - HYPERKALEMIA Comment: 03/28/19 -K+ 5.3 -Continue Lisinopril hold -Kayexaelate 15mg PO x 1 prior to discharge -Instructed to have blood drawn on 04/02 or 04/03 so that PCP can monitor kidneys and potassium (4) Hypertension Status: Acute Base Code: I10 - ESSENTIAL (PRIMARY) HYPERTENSION Comment: 03/28/19 -Controlled during stay without anti-hypertensives -BP prior to d/c 138/64 -Continue hold on Lisinopril and Dyazide d/t nephrotoxcity -Start Norvasc 5mg PO q. day x 14 days -Instructed to continue with F/u on 04/09/19 with PCP as BP medication may be changed again (5) Full code status Status: Acute Base Code: Z78.9 - OTHER SPECIFIED HEALTH STATUS Comment: 03/28/19 -Full code this admission (6) DVT prophylaxis Status: Acute Base Code: Z29.9 - ENCOUNTER FOR PROPHYLACTIC MEASURES, UNSPECIFIED Comment: 03/28/19 -High risk d/t age and co-morbidities -Pt ambulating around room well, nursing to continue to encourage ambulation - Hospitalization Course Disposition: Home, Self-Care Hospital Course: Jocelyn Marin is an 83 y.o. M who was recently hospitalized from 03/14/19 to 03/18/19 for RLE cellulitis. During that hospital stay, he had a Chest CTA with contrast and received IV antibiotics. At discharge, he was sent home on Keflex BID, Bactrim DS BID, was started on Dyazide for blood pressure control and also had his Lisinopril increased to 40mg daily. Had f/u with PCP, Ivonne Newell on 03/20/18 where Keflex was changed to Cefdinir (per pt refusal to take Keflex) and Lisinopril was decreased to 20mg. He then had labwork, as ordered by PCP, done on 03/26/19 which showed BUN 39, Creat 2.0, eGFR 34, K+ 5.4 indicating FABRIZIO. He was sent to ER by PCP. PMHx: Reactive airway disease, COPD, cellulitis and HTN 03/27/19 1045 Vitals: T 97.6 HR 55, BP 114/56 RR 16 SpO2 93% RA Resting in bed with friend at beside. A&Ox3 with no s/sx of distress. Reports that he is feeling well and that he actually felt fine the previous day as well although he wasn't peeing much. Feels that his RLE looks better. Denies having any pain or discomfort. 03/28/19 States he continues to feel fine. Is hoping he can discharge. Reports that he is going out of town for several days next weekend and wasn't able to get in with PCP prior to his leaving. Denies having any pain. Procedures: Cardiology Procedures 03/26/19 13:24 EKG NOW 03/26/19 13:36 Curing Press Maintainer NOW Abnormal Labs: Abnormal Lab Results 03/26/19 03/26/19 03/27/19 Range/Units 12:45 12:45 06:37 MCHC 31.9 L (32-36) g/dl Sodium 135 L (136-145) mmol/L Potassium 5.4 H 5.3 H (3.4-4.5) mmol/L BUN 39 H 27 H (8-23) mg/dL Creatinine 2.0 H 1.5 H (0.7-1.2) mg/dL Calcium 8.5 L (8.8-10.2) mg/dL 03/28/19 Range/Units 06:30 MCHC (32-36) g/dl Sodium (136-145) mmol/L Potassium 5.3 H (3.4-4.5) mmol/L BUN (8-23) mg/dL Creatinine 1.4 H (0.7-1.2) mg/dL Calcium 8.6 L (8.8-10.2) mg/dL Condition at Discharge: (2) Stable Discharge Medications - Discharge Medications Prescriptions: Amlodipine Besylate [Norvasc] 5 mg PO DAILY 14 Days #14 tab Home Medications: Ambulatory Orders Glucosam/Kevyn-Msm1/C/Jason/Bosw [Osteo Bi-Flex] 1 tab PO DAILY 04/15/15 [Last Taken 03/26/19] Multivit-Min/FA/Vit K/Lycopene [One-A-Day Men's 50 Plus Tablet] 1 each PO DAILY 03/14/19 [Last Taken 03/26/19] Pramipexole Di-HCl [Mirapex] 1 mg PO QHS 03/14/19 [Last Taken 03/26/19] Simvastatin 20 mg PO QHS 03/14/19 [Last Taken 03/26/19] Tiotropium [place] [Spiriva Respimat] 2 puff INH DAILY 03/14/19 [Last Taken 03/26/19] Acetaminophen [Tylenol 500Mg Tab] 1,000 mg PO Q6H PRN tablet 03/18/19 [Last Taken 03/26/19] Acetaminophen [Tylenol 500Mg Tab] 1,000 mg PO Q6H PRN tablet 03/28/19 [Last Taken Unknown] Amlodipine Besylate [Norvasc] 5 mg PO DAILY 14 Days #14 tab 03/28/19 [Last Taken Unknown] Cefdinir 300 mg PO Q12H capsule 03/28/19 [Last Taken Unknown] Cefdinir [Omnicef] 300 mg PO Q12H #5 cap 03/28/19 [Last Taken 03/26/19] Discharge Plan - Discharge Instructions Activity at Discharge: Resume Usual Activities As Tolerated Additional Instructions: Follow up with Ivonne Newell on April 09 at 2:20pm at [facility]. Have your blood drawn early next week so we can monitor your kidneys Do not take any of the blood pressure medications that you have at home until you follow up with Ivonne on 04/09/19 Start a new blood pressure medication called Amlodipine 5mg (Norvasc) daily. Continue Cefdinir for 5 more doses. Quality Measures - Quality Measures Quality Measures: Advance Directives, Documentation of Current Medications in Medical Record, Elder Maltreatment Screen and Follow-Up Plan, Screening for High Blood Pressure and F/U Documented - Current Medications Quality Measure: Measure #130: Documentation of Current Medications Documentation of Current Medications: <Current Medications Documented/Reviewed> [E3355] - Blood Pressure Screening Quality Measure: Screening for High Blood Pressure and Follow-Up Documented Does Patient Have Any of the Following: Active Dx of HTN Blood Pressure Classification: Normal BP Reading Systolic Measurement: 118 Diastolic Measurement: 57 Screening for High Blood Pressure: Patient Exclusion, Hx of HTN [G9744] - Advance Directives Quality Measure: Measure #47: Care Plan Advance Directives Established: Yes Advance Directives Information Provided To Patient: Declined Advance Directives on File: No Living Will: No Power of Perl Software Engineer: Yes Power of Perl Software Engineer Name: SADA VALLES Advance Care Planning: <Care Plan/Decision Maker Documented; Discussed & Documented> [[id number]] - Elder Abuse Suspicion Index Screening: Elder Abuse Suspicion Index Screening Rely on people for bathing, dressing, shopping, banking, etc: No Prevented from getting food, clothes, medication, etc: No Made to feel shamed or threatened by someone: No Forced to sign papers or use money against will: No Feel afraid, touched in ways not wanted or hurt physically: No Poor eye contact, withdrawn, malnourished, cuts or bruises: No Screening Result: Negative result EASI Reference Information: Margaux KEBEDE, Yael C, Terrance D, Marisol Pierson.Development and validation of a tool to assist physicians identification of elder abuse: The Elder Abuse Suspicion Index (EASI ). Journal of Elder Abuse and Neglect, 2008; 20 (3): 276-300. - Elder Maltreatment Screen Quality Measures: Elder Maltreatment Screen and Follow-Up Plan Elder Maltreatment Screen: <Negative, No Follow-Up Plan Required> [G8734]
[2019-03-29] MEDS ORDERED: AMLODIPINE BESYLATE 5MG TAB PO SCH (10:00)
== END 2019-03-28 13:12 | disposition home or self-care (01) | DRG 683 ==
LOC: ER 12:15 → MEDSURG 14:48
PROVIDERS: ADMIT Internal Medicine; ATTEND Internal Medicine
DX: N17.9 Acute kidney failure, unspecified (principal); L03.115 Cellulitis of right lower limb; E87.5 Hyperkalemia; I10 Essential (primary) hypertension; E78.5 Hyperlipidemia, unspecified; I25.10 Atherosclerotic heart disease of native coronary artery without angina pectoris; G47.33 Obstructive sleep apnea (adult) (pediatric); Z90.79 Acquired absence of other genital organ(s); Z85.46 Personal history of malignant neoplasm of prostate; N52.9 Male erectile dysfunction, unspecified
CPT/HCPCS: 80048; 83880; 85027; 93005; 93010; 94640; 99223; 99239; 99285; J7030